=== PATIENT | male | born 1960 | race Caucasian/White ===

== ENCOUNTER 2016-09-19 07:30 | Inpatient (IN) ==
[~2016-09-19 07:30] MED LIST: *HR* FentaNYL (PF) 100 MCG/2 ML VIAL ONE; *HR* Midazolam HCl 2 MG/2 ML VIAL ONE; *HR* Phenylephrine 10 MG/ML VIAL ONE; *HR* Propofol 200 MG/20 ML VIAL IVP ONE; *HR* Remifentanil 1 MG VIAL IVP ONE; *HR* Succinylcholine 200 MG/10 ML VIAL IVP ONE; Dexamethasone 4 MG/ML VIAL ONE; Lidocaine -MPF 2% 2 ML VIAL ONE; Lidocaine -MPF 4% 5 ML AMPUL ONE; Ondansetron 4 MG/2 ML VIAL ONE
[2016-09-19] MEDS ORDERED: Gabapentin 300 MG CAPSULE PO STA (07:52)
--- NOTE | 2016-09-19 07:55 | Anesthesia Evaluation PreOp ---
Date of Encounter: 09/19/16 Time of Encounter: 07:53 - Past History Planned Operation: C5-6 ACDF Cardiac History: [place] (2005), Angina, HTN (maintained on lisinopril-Hctz, Metoprolol,), Hyperlipidemia, Cardiac Surgery (CABG x 3v 07/2006), Cardiac Stent (CABG), Other (ECHO 09/13/16 - LVEF = 68%. 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 Cervical RAdiculopathy. Anxiety/Depression w/ hospitalization for SI/OD 07/2015 - maintained on Cymbalta, TRazadone, Abilify. Memory loss/Mental Disorder) Other Medical History: GERD (Hiatal hernia, Crohns Dz, Gill's Esophagitis, Ulcerative Colitis) Anesthesia History: No Prior Anesthetic Complications, Past Anesthesia (Knee surgery, Cardiac Cath w/CABG x3v 06/2006, EGD, Colonoscopy/polypectomy) Alcohol Use: occasionally Drug use: none Medications and Allergies Albuterol Sulfate [Ventolin Hfa] 2 puff IH Q4H PRN 04/27/16 [History] Aripiprazole [Abilify] 10 mg PO DAILY 04/27/16 [History] Atorvastatin [Lipitor] 40 mg PO HS 04/27/16 [History] Duloxetine [Cymbalta] 90 mg PO DAILY 04/27/16 [History] Fluticasone Propionate Nasal [Flonase] 2 spr NS DAILY PRN 04/27/16 [History] Nitroglycerin [Nitrostat] 0.4 mg SL Q5M PRN 04/27/16 [History] OxyCODONE/APAP 10/325 [Percocet 10/325 MG] 1 each PO Q6HR PRN #14 tablet [Rx] Promethazine [Phenergan] 25 mg PO Q6HR PRN 04/27/16 [History] OxyCODONE/APAP 5/325 [Percocet 5/325 MG] 1 each PO Q6HR #10 tablet 08/24/16 [Rx] Allergies acetaminophen [From [place]] Adverse Reaction (Verified 08/24/16 13:03) Itching hydrocodone [From [place]] Adverse Reaction (Verified 08/24/16 13:03) Itching - Meds/Allergy Pre-op Review Medications Reviewed: Yes Allergies Reviewed: Yes Beta Blockers on Current Med List: Yes If Beta Blockers taken, Date/Time (Last Dose taken): Metoprolol "a few days ago " Anesthesia Results - Labs Laboratory Tests 08/13/15 09/07/16 09/07/16 06:01 14:40 14:40 WBC 12.4 H Hgb 16.3 Hct 48.2 Plt Count 298 PT 11.3 INR 1.0 APTT 32.1 Sodium Potassium Chloride Carbon Dioxide BUN Creatinine Est GFR (Non-Af Amer) Glucose 104 H 09/07/16 14:40 WBC Hgb Hct Plt Count PT INR APTT Sodium 140 Potassium 3.9 Chloride 112 H Carbon Dioxide 20 BUN 15 Creatinine 0.93 Est GFR (Non-Af Amer) > 60 Glucose - Imaging EKG: image reviewed (80bpm SR, ST deviation adn moderate Twave abnl, inferior ischemia considiered) Anesthesia Exam O2 Sat Height 1.78 m Weight 95.254 kg O2 Sat Height 1.78 m Height 1.78 m Weight 95.254 kg Weight 95.254 kg O2 Sat by Pulse Oximetry 95 Vital Signs Temp Pulse Resp BP Pulse Ox 98.0 F 65 18 150/93 95 09/19/16 08:24 09/19/16 08:24 09/19/16 08:24 09/19/16 08:24 09/19/16 08:24 Height: 5'10" Weight: 210# NPO (# of Hours): MNoc - HEENT Pupil (Motor): Pupils equal, EOMI Mallampati: III Teeth: Edentulous (upper) Oral Opening: Greater than 3 - EQUIPMENT HIRE MANAGER LOC: Oriented EQUIPMENT HIRE MANAGER Motor: Normal RUE, Normal RLE, Normal LLE, Normal Face, Deficit LUE ( Shoulder pain) EQUIPMENT HIRE MANAGER Sensory: Normal: RUE, LUE, RLE, LLE, Face - Cardiac Rhythm: Regular - Pulmonary Breath Sounds: bilateral Clear Respiratory Effort: Symmetrical Anesthesia Assess/Plan ASA Score: 3 (CAD, HTN, MEMO, Smoker, Mental Disability, COPD) Modified Burnside Scale for Level of Consciousness: Cooperative, oriented, and tranquil Anesthetic Plan: General Monitoring Plan: Standard Monitors Recovery Plan: PACU Anes Supervising Prov Stmt: Pt seen/evaluated, R&B discussed, questions answered and consent obtained. Sue Tamez MD
--- NOTE | 2016-09-19 07:58 | History & Physical Report ---
Date of Encounter: 09/19/16 Time of Encounter: 07:58 24 Hour HP Update - Instructions Instructions: If the History and Physical is less than 30 days old and was completed prior to A.M. admission and or procedure and has NOT been updated on calendar day of procedure please complete this update prior to performing procedure. - Update Patient reports changes in Medical Condition: No Changes in assessment/condition: No Changes in Medication: No Preop tests/diagnostics Reviewed: Yes Pre-Op MRSA Screen: Negative Surgery Remains Indicated: Yes Consent for Planned Operative Procedure(s) Verified: Yes - Pre-Operative Checklist Preoperative Checklist Indicated: No Prophylactic Antibiotic Ordered: Yes Home Medications Include Beta Kat: No Beta Kat Taken Today (Day of Surgery): No Beta Kat Taken Yesterday (Day Prior to Surgery): No Is VTE Prophylaxis Indicated?: Yes
[2016-09-19] MEDS ORDERED: Famotidine 20 MG/2 ML VIAL IVP ONE (08:08)
[2016-09-19] MEDS ORDERED: Acetaminophen IV 1,000 MG/100 ML INFUS..BTL IVPB ONE (08:10)
[2016-09-19] MEDS ORDERED: CeFAZolin Pre 2,000 MG/100 ML 2,000 MG/100 ML BAG IVPB ONE (08:10)
[2016-09-19] MEDS ORDERED: Albuterol 2.5 MG/3 ML NEBULIZER IH ONE (08:13)
[2016-09-19] MEDS ORDERED: Albuterol 2.5 MG/3 ML NEBULIZER ONE (08:16)
[2016-09-19] MEDS: Ringers Solution, Lactated 1,000 ML IVC SCH ×3 (08:29→11:02)
[2016-09-19] MEDS ORDERED: *HR* Metoprolol 5 MG/5 ML VIAL IVP ONE (08:41)
[2016-09-19] MEDS ORDERED: EPHEDrine 50 MG/ML VIAL ONE (09:15)
--- NOTE | 2016-09-19 10:53 | Orthopedic Operative Note ---
Date of procedure: 09/19/16 Pre-op diagnosis: cervical stenosis, cervical radiculopathy Post-op diagnosis: same Operation/Findings: Anterior cervical decompression and fusion C5-C6: The patient was brought to the operating room and placed supine on the operating room table. Successful general endotracheal anesthesia intubation was performed. Neurophysiologic monitoring personnel placed leads on the upper and lower extremities as well as the cranium for EMG monitoring purposes. Appropriate baseline potentials were noted by the neurophysiologic monitoring staff. Cohen catheter was placed prior to positioning. Compression boots and stockings were used for deep vein thrombosis prophylaxis. Padding was also placed all bony prominences including the ulnar nerve near the medial epicondyles of the elbows were appropriately padded. Mild traction was placed on the bilateral shoulders and taped into place. Preoperative antibiotics were administered. The area from the mandible bilaterally to the upper thoraces was prepped and draped in the usual sterile fashion. A transverse incision was made at the level of the cricoid cartilage which is approximately 3 cm in length and extended from the midline of the cervical spine laterally towards the sternocleidomastoid muscle on the left. We then performed standard medial approach to the carotid sheath. Sponges were used to tease the fascial medial to the sternocleidomastoid muscle while carefully controlling and palpating the carotid artery. Using careful dissection we were able to get to the level of the anterior vertebral bodies and longus coli muscles. The spinal needle was placed at the appropriate C5-6 level, and intraoperative radiograph was obtained which was a cervical spine lateral radiograph. The needle and radiograph confirmed we were at the correct C5-6 operative level. We further exposed this level by using Bovie cautery under the medial edge of the longus coli muscles to allow them to be retracted approximately 2 mm laterally on each side. An 11 blade was used to perform anterior discectomy at the appropriate C5-6 level after an initial annulotomy of the anterior longitudinal ligament and annulus was performed. Further disc material was removed with pituitary Rongeurs. Subsequently, Synthes pins were placed at the C5 and C6 vertebral bodies respectively to provide distraction. We then used a Trimline cervical retractor which was placed in both medial and lateral as well as inferior superior direction to allow full visualization of the appropriate disc and vertebral bodies. The Leica microscope was brought to the field and the remainder of the procedure was performed under the guidance of this microscope. Using pituitary rongeurs and small curettes, various micro-instruments, a full discectomy was performed at the appropriate C5-6 level. The posterior longitudinal ligament was encountered and appeared partially calcified. A portion of this ligament was removed. After complete and thorough discectomy and removal of spondylitic material was performed the endplates of the C5 and C6 vertebral bodies were prepared with a bur until allow bleeding of cancellous bone. A 7 mm trial graft was evaluated and appeared to fit quite well within the excised C5-6 disc space. A cortico-cancellus allograft of 7 mm was utilized, carefully tapped into place within the excised disc space with the aid of a bone tamp. It was seated approximately 2 mm from the anterior edge of the cortex of the adjacent vertebral bodies. A cervical plate was then placed on the anterior aspect of the C5 and C6 vertebral bodies. The plate was placed in the midline position after drilling four 13 mm self tapping screws and inserting them. They were locked in place using standard Venture plate maneuvers. At this point a lateral radiograph of the cervical spine was obtained and showed satisfactory position of the graft and plate. The wound was copiously irrigated and bleeders encountered were cauterized using Bovie cautery. Platysma was closed with interrupted 2-0 Vicryl sutures. Running 3-0 Monocryl suture was used for skin closure. Sterile dressing was placed over the neck wound. The patient was transferred to a hospital bed and extubated. The patient was noted to be fully motor and sensory intact in the recovery room at the end of the procedure. The medications. All sponge instrument and needle counts were correct at the end of the procedur Anesthesia: GETA Surgeon: Timoteo Zamora Jr Estimated blood loss (cc): 11 Condition: stable Disposition: PACU
[2016-09-19] MEDS: *HR* HYDROmorphone (PF) 1 MG/ML SYRINGE IVP PRN ×3 (11:10→11:30)
[2016-09-19] MEDS: *HR* Promethazine 25 MG/ML VIAL IVP PRN ×2 (11:15→11:22)
[2016-09-19] MEDS: *HR* Labetalol 100 MG/20 ML MDV IVP PRN ×2 (11:29→11:34)
[2016-09-19] MEDS ORDERED: CloNIDine Patch 0.1 MG PATCH (WEEKLY) TD SCH (11:48)
--- NOTE | 2016-09-19 12:09 | Anesthesia Evaluation Post Op ---
Date of Encounter: 09/19/16 Time of Encounter: 12:07 - Vital Signs Vital Signs: Vital Signs/O2 Sat/Glucose, Most Current Temp Pulse Resp BP Pulse Ox 09/19/16 11:52 79 16 163/106 92 L 09/19/16 11:42 77 16 164/108 92 L 09/19/16 11:32 97.8 F 77 16 167/106 92 L 09/19/16 11:22 78 16 178/113 93 L 09/19/16 11:12 81 16 173/114 95 09/19/16 11:02 97.6 F 81 16 176/109 99 09/19/16 08:30 98.0 F 65 18 150/93 95 09/19/16 08:24 98.0 F 65 18 150/93 95 - Lungs Lungs: Clear Ascult./Percussion - Airway Airway: Non-obstructed - Cardiovascular Regular Rate - Mental Status Mental Status: Asleep with brisk response to light stimulation - Pain Pain Scale: 1 Pain Scale used: [place] (Faces) - Nausea Vomiting Nausea Vomiting: Not Present - Hydration Hydration: Ice chips, Cohen catheter - Discharge PostOp Status: Transfer Patient to floor Anes Supervising Prov Stmt: Pt seen/evaluated, VSS and pt has met criteria for discharge to floor. - MD Joi
[2016-09-19] MEDS ORDERED: *HR* Morphine 2 MG/ML SYRINGE IVP PRN (12:18)
[2016-09-19] MEDS ORDERED: Naloxone 0.4 MG/ML INJ IVP PRN (12:18)
[2016-09-19] MEDS ORDERED: Sennosides 8.6 MG TABLET PO PRN (12:18)
[2016-09-19] MEDS ORDERED: Ringers Solution, Lactated 1,000 ML IVC SCH (12:18)
[2016-09-19] MEDS ORDERED: Nitroglycerin 0.4 MG TAB.SUBL SL PRN (12:18)
[2016-09-19] MEDS ORDERED: Fluticasone Propionate Nasal 50 MCG/SPRAY BOTTLE NS PRN (12:18)
[2016-09-19] MEDS: *HR* OxyCODONE Immed Rel 5 MG TABLET PO PRN ×2 (13:11→19:48)
[2016-09-19] MEDS: ceFAZolin 2,000 MG in D5% in Water 100 ML IVPB SCH (15:13)
[2016-09-19] MEDS: *HR* Morphine 2 MG/ML SYRINGE IVP PRN ×2 (17:44→22:11)
[2016-09-19] MEDS ORDERED: Ondansetron 4 MG/2 ML VIAL IVP PRN (18:08)
[2016-09-19] MEDS ORDERED: traZODone 50 MG TABLET PO SCH (21:00)
[2016-09-20] MEDS: ceFAZolin 2,000 MG in D5% in Water 100 ML IVPB SCH (01:17)
[2016-09-20] MEDS: *HR* OxyCODONE Immed Rel 5 MG TABLET PO PRN (04:39)
[2016-09-20] MEDS: *HR* Morphine 2 MG/ML SYRINGE IVP PRN (05:55)
[2016-09-20] MEDS ORDERED: *HR* OxyCODONE Immed Rel 5 MG TABLET PO PRN (08:47)
[2016-09-20] MEDS ORDERED: Metoprolol XL (24 HR) Succ 50 MG TAB.ER.24H PO SCH (09:00)
[2016-09-20] MEDS ORDERED: (Budesonide [Entocort Ec] 9 MG) PO SCH (09:00)
[2016-09-20] MEDS ORDERED: ARIPiprazole 10 MG TABLET PO SCH (09:00)
[2016-09-20] MEDS ORDERED: Lisinopril 20 MG TABLET PO SCH (09:00)
[2016-09-20] MEDS ORDERED: *HR* OxyCODONE Immed Rel 5 MG TABLET PO SCH (12:00)
[2016-09-20 12:28] VITALS: BP 154/80
--- NOTE | 2016-09-20 13:27 | Discharge Summary ---
Date of Encounter: 09/20/16 Time of Encounter: 13:25 - Discharge Diagnosis (1) Cervical spinal stenosis Priority: Primary Status: Chronic (2) Cervical radiculopathy Priority: Secondary Status: Chronic - Discharge Medications Prescriptions: OxyCODONE Immed Rel [Roxicodone 5 MG] 5 mg PO Q4HR PRN #60 tablet PRN Reason: Pain Home Medications: Albuterol Sulfate [Ventolin Hfa] 2 puff IH Q4H PRN 04/27/16 [History] Aripiprazole [Abilify] 10 mg PO DAILY 04/27/16 [History] Atorvastatin [Lipitor] 40 mg PO HS 04/27/16 [History] Duloxetine [Cymbalta] 90 mg PO DAILY 04/27/16 [History] Fluticasone Propionate Nasal [Flonase] 2 spr NS DAILY PRN 04/27/16 [History] Nitroglycerin [Nitrostat] 0.4 mg SL Q5M PRN 04/27/16 [History] OxyCODONE/APAP 10/325 [Percocet 10/325 MG] 1 each PO Q6HR PRN #14 tablet [Rx] Budesonide [Entocort EC] 9 mg PO DAILY 09/19/16 [History] Lisinopril [Zestril] 20 mg PO DAILY 09/19/16 [History] Metoprolol XL (24 HR) Succ [Toprol Xl] 50 mg PO DAILY 09/19/16 [History] Terazosin [Hytrin] 5 mg PO HS 09/19/16 [History] Trazodone HCl 100 mg PO HS 09/19/16 [History] OxyCODONE Immed Rel [Roxicodone 5 MG] 5 mg PO Q4HR PRN #60 tablet 09/20/16 [Rx] Allergies/Adverse Reactions: Allergies acetaminophen [From [place]] Adverse Reaction (Verified 09/19/16 08:39) Itching hydrocodone [From [place]] Adverse Reaction (Verified 09/19/16 08:39) Itching - Impressions ITS Impressions Cervical Spine X-Ray 09/19/16 09:35 IMPRESSION: Intraoperative sagittal image of the cervical spine demonstrates a surgical probe at the anterior aspect of C5-6 disc space. The findings were reported to Dr. Zamora at 9:46 a.m. on September 19, 2016. D/ / Sami Orona MD / Sami Orona MD Interpreting Provider: Sami Orona MD Cervical Spine X-Ray 09/19/16 09:48 IMPRESSION: Status post C5-C6 ACDF D/ / Toi Dhillon MD / Toi Dhillon MD Interpreting Provider: Toi Dhillon MD Cervical Spine X-Ray 09/20/16 08:15 IMPRESSION: Anterior cervical spinal fusion and discectomy of C5-C6 without acute complication. D/ / Ramon Betancourt MD / Ramon Betancourt MD Interpreting Provider: Ramon Betancourt MD Date of admission: 09/19/16 12:22 Primary care physician: Ketty Rojas, Consults: 09/19/16 12:18 Consult to Occupational Therapy [CONS] Routine Comment: Evaluate, develop and implement POC Consult to Physical Therapy [CONS] Routine Comment: Evaluate, develop and implement POC Consult to Spine Navigator [CONS] [CONS] Routine - Patient Status Disposition: Home, Self-Care Condition: Good Functional capacity at discharge: independent ambulation Overall status at discharge: patient is back to baseline - Discharge Instructions Follow Up With: Andra Chaney PAC [Physician Final Inspector [employer]cyles] - 10/02/16 10:00 am Jamar Estrada MD [Partnered Physician] - 11/26/16 11:00 am Ketty Rojas MD [Primary Care Provider] - Additional Instructions: Discharge Instructions: Cervical Please call [facility] ([phone]), your Primary Care Physician, or report to the ER if you have any of the following symptoms: Fever greater that 101.5, increased pain/redness/drainage/odor for your incision site or any other concerning symptoms. ACTIVITY * May Shower * No Tub Baths * No Smoking * No Swimming * No Driving * Wear Collar when up walking MEDICATIONS: Upon discharge resume your home medications. Take all the medications as prescribed. Take a stool softener if taking narcotic pain medications. Stool softeners are only effective if you drink enough fluids. Drink 6-8 glass of water or fluids a day, unless this is not allowed for another health problem. Despite using stool softeners, if you haven't had a bowel movement in 3 days, please switch to a gentle laxative. Gentle laxatives are sold over the counter. You should have a bowel movement within 24 hours, if not call the office. You will be discharged from the hospital with a prescription for pain medication. You are encouraged to decrease the use of narcotic pain medication as tolerated. Should you require a refill, please call the office. It is best to call 48-72 hours in advance of needing a prescription refill so you don't run out of medication. WOUND CARE: Leave steri-strips in place until they fall off on their own. Pat dry when you get out of the shower. FOLLOW-UP: Please follow up with your surgeon in the orthopedic clinic in 2 weeks from the day of surgery. References: [employer] (www.apta.org) - Diet and Activity Activity: ambulate only with your walker, as per physical therapy Diet: advance to your usual diet - Hospital Course Hospital course: Mr. Kowalski is a 56 year old male The patient had an uneventful postoperative course. Progressed from intravenous analgesic needs to oral analgesic needs only. Remained neurovascularly intact and mobilized satisfactorily. All intraoperative and/or postoperative radiographic studies were satisfactory. Patient is discharged with plan for rehabilitation and follow-up in 2 weeks post discharge on analgesic medication and patient's home medications. - Time Spent with Patient Total time spent providing and/or coordinating discharge services: - VTE Documentation of Mechanical Device: Intermittent pneumatic compression device
== END 2016-09-20 13:52 | disposition home or self-care (01) | DRG 472 ==
LOC: SAMDAY 07:30 → 3NENU 12:22
PROVIDERS: ADMIT Orthopaedic Surgery Orthopaedic Surgery of the Spine; ATTEND Orthopaedic Surgery Orthopaedic Surgery of the Spine

== ENCOUNTER 2018-09-03 20:09 | Inpatient (IN) ==
[2018-09-03] MEDS ORDERED: Nitroglycerin 0.4 MG TAB.SUBL SL PRN (20:27)
[2018-09-03] MEDS ORDERED: *HR* Ticagrelor 90 MG TABLET PO ONE (20:27)
[2018-09-03] MEDS ORDERED: Aspirin 81 MG TAB.CHEW PO ONE (20:27)
[2018-09-03] MEDS ORDERED: *HR* Heparin 5,000 UNIT/ML VIAL IVP PRN ×2 (20:27)
[2018-09-03] MEDS ORDERED: *HR* Heparin 5,000 UNIT/ML VIAL IVP ONE (20:27)
[2018-09-03] MEDS ORDERED: Heparin 25,000 UNIT/500 ML D5W 25,000 UNIT/500 ML BAG IVC SCH (20:30)
[2018-09-03] MEDS ORDERED: *HR* Heparin 5,000 UNIT/ML VIAL ONE (20:31)
[2018-09-03] MEDS ORDERED: *HR* Ticagrelor 90 MG TABLET ONE (20:31)
[2018-09-03] MEDS ORDERED: Aspirin 81 MG TAB.CHEW ONE (20:31)
[2018-09-03 20:44] LABS: Basophils # 0.1 K/mcL (0.0-0.2); Basophils % 1.2 %; Eosinophils # 0.6 K/mcL (0.0-0.6); Eosinophils % 5.3 %; Hemoglobin 14.9 g/dL (12.9-16.9); Immature Granulocytes % 0.7 % (0-4); Lymphocytes # 3.5 K/mcL (0.6-4.6); Lymphocytes % 28.7 %; Mean Corpuscular HGB Conc 32.4 g/dL (31.6-35.5); Mean Corpuscular Hemoglobin 28.6 pg (28.0-33.3); Mean Corpuscular Volume 88.3 fL (83.0-100.0); Mean Platelet Volume 8.5 fL (9.4-12.4); Monocytes # 1.7 K/mcL (0.0-1.3); Monocytes % 14.5 %; Platelet Count 414 K/mcL (140-400); Red Blood Count 5.21 M/mcL (4.19-5.50); Segmented Neutrophils % 49.6 %
[2018-09-03] MEDS ORDERED: Verapamil 5 MG/2 ML VIAL ONE (20:51)
[2018-09-03] MEDS ORDERED: 0.9 % Sodium Chloride 1,000 ML ONE ×2 (20:52→21:17)
[2018-09-03] MEDS ORDERED: *HR* FentaNYL (PF) 100 MCG/2 ML VIAL ONE (20:52)
[2018-09-03] MEDS ORDERED: *HR* Heparin 10,000 UNIT/10 ML VIAL ONE (20:52)
[2018-09-03] MEDS ORDERED: ISOVUE-370 200 ML INFUS..BTL ONE ×2 (20:52→21:36)
[2018-09-03] MEDS ORDERED: *HR* Midazolam HCl 5 MG/5 ML VIAL IVP ONE (20:52)
[2018-09-03] MEDS ORDERED: Heparin 1,000 UNITS/500 mL 500 ML ONE (20:52)
[2018-09-03] MEDS ORDERED: Nitroglycerin 1,000 MCG/10 ML VIAL IV ONE (20:53)
--- NOTE | 2018-09-03 20:53 | Emergency Department Note ---
Disposition Clinical Impression: STEMI (ST elevation myocardial infarction) Qualifiers: Involved coronary artery: unspecified coronary artery Qualified Code(s): I21.3 - ST elevation (STEMI) myocardial infarction of unspecified site Chest pain Qualifiers: Chest pain type: unspecified Qualified Code(s): R07.9 - Chest pain, unspecified Disposition: Admitted As Inpatient Condition: Fair Referrals: Ketty Rojas MD [Primary Care Provider] - Forms: ED Satisfaction Letter Time of Disposition: 20:56 General Adult HPI - General Chief complaint: ED Chest Pain Stated complaint: chest pain had stints placed last week Time Seen by Provider: 09/03/18 20:20 Source: patient Mode of arrival: ambulatory Limitations: no limitations Nursing Notes Reviewed: Yes Vital Signs Reviewed: Yes - History of Present Illness HPI Narrative: Patient is a 58-year-old male with a past medical history of CABG in 2005, 2 stents placed in the RCA approximately one week ago presents to the emergency department for evaluation of chest pain that occurred one hour prior to arrival. Patient states he is resting on his couch at home when he had sudden onset of a pressure-like chest pain in the left chest. He described the pain initially as a 7/10. He states he also has felt generally weak at that time. States he took 2 nitroglycerin at home and his pain resolved. Patient is present with his daughter. Daughter states that one week ago he was seen at [place] and he was life flighted to their hospital because he was being coded. The patient was found to have blockage in his RCA in 2 stents were placed at that time. Daughter states that the patient has been noncompliant with his Plavix and other meds. Pain Scale: 0 - Related Data Home Medications Medication Instructions Recorded Confirmed Albuterol Sulfate [Ventolin Hfa] 2 puff IH Q4H PRN 04/27/16 01/22/18 Aripiprazole [Abilify] 10 mg PO DAILY 04/27/16 01/22/18 DULoxetine [Cymbalta] 90 mg PO DAILY 04/27/16 01/22/18 Lisinopril [Zestril] 20 mg PO DAILY 09/19/16 01/22/18 Terazosin [Hytrin] 5 mg PO HS 09/19/16 01/22/18 Dextroamphetamine/Amphetamine 15 mg PO BID 01/22/18 01/22/18 [Adderall 15 mg Tablet] Dicyclomine [Bentyl] 10 mg PO TID 01/22/18 01/22/18 Omeprazole [PriLOSEC] 40 mg PO DAILY 01/22/18 01/22/18 Zolpidem Tartrate 5 mg PO HS 01/22/18 01/22/18 Previous Rx's Medication Instructions Recorded Clindamycin [Cleocin] 150 mg PO Q6HR #7 capsule 01/22/18 Ibuprofen [Motrin] 600 mg PO Q8HR PRN #21 tab 01/22/18 OxyCODONE Immed Rel [Roxicodone 5 1 - 2 mg PO Q6HR PRN 5 Days #20 01/22/18 MG] tablet Allergies Allergy/AdvReac Type Severity Reaction Status Date / Time hydrocodone [From [place]] AdvReac Itching Verified 01/22/18 08:36 All systems ED: reviewed and negative except as stated. Review of Systems: As Per HPI Constitutional: Denies: fever, chills Cardiovascular: Reports: chest pain, other (Diaphoresis). Denies: palpitations, dyspnea on exertion, edema Respiratory: Denies: cough, dyspnea, wheezes Gastrointestinal: Denies: nausea, vomiting Integumentary: Denies: rash Past Medical History - Past Medical History Attestation: Yes The following information was validated with the patient. Medical history: Reports: COPD, coronary artery disease, GERD, hypertension, myocardial infarction, thyroid disease, other Surgical history: Reports: coronary bypass (CABG), other Psychiatric history: Reports: depression - Social History Smoking Status: Current every day smoker Smokeless Tobacco Status: No Alcohol use: Reports: none Drug use: Reports: none Physical Exam CONSTITUTIONAL: A&O X 3, diaphoretic, and speaking in full sentences. HEAD: Normocephalic; atraumatic EYES: PERRL, no scleral icterus NOSE: The nose is normal in appearance without rhinorrhea NECK: No JVD or distended neck veins RESP: Normal chest excursion with respiration; breath sounds clear and equal bilaterally; no wheezes, rhonchi, or rales CARD: Regular rhythm, without murmurs, rub or gallop ABD: Non-distended; non-tender, soft, without rigidity, rebound or guarding,no pulsatile mass CHEST: No pain with palpation SKIN: Normal for age and race; warm and dry without diaphoresis ; no apparent lesions EXTREMITIES: Pulses are 2 plus and equal times 4 extremities, no peripheral edema or calf muscle pain - General Limitations: no limitations General appearance: alert, in no apparent distress Course Course Narrative: EKG was handed to me at 20:18. EKG was concerning for ST elevation in II, III and aVF. Patient also has ST depressions in room 1 and aVL with mild ST elevations in leads V4 through V6. STEMI was called at that time. I discussed the patient's case with the cardiac interventional is Dr. Ferguson on the phone and sent him a picture of the EKG. He agreed to take the patient to the Boxing Instructor at that time. Aspirin, brill into and low-dose heparin was ordered and patient is currently stable at this time and chest pain-free. Vital Signs Temperature 97.8 F 09/03/18 20:22 Pulse Rate 78 09/03/18 20:22 Respiratory Rate 18 09/03/18 20:22 Blood Pressure 170/107 09/03/18 20:22 O2 Sat by Pulse Oximetry 94 09/03/18 20:22 Temperature 97.8 F 09/03/18 20:22 Pulse Rate 73 09/03/18 20:45 Respiratory Rate 20 09/03/18 20:45 Blood Pressure 154/98 09/03/18 20:45 O2 Sat by Pulse Oximetry 95 09/03/18 20:45 Oxygen Delivery Oxygen Delivery Room Air Medical Decision Making - Medical Records Medical records reviewed: Yes I reviewed the patient's medical records. - Lab Data Lab results reviewed: Yes I reviewed the patient's lab results. Result diagrams: 09/03/18 20:32 Lab Results 09/03/18 Range/Units 20:32 WBC 12.0 H (4.3-11.1) K/mcL RBC 5.21 (4.19-5.50) M/mcL Hgb 14.9 (12.9-16.9) g/dL Hct 46.0 (37.5-50.1) % MCV 88.3 (83.0-100.0) fL MCH 28.6 (28.0-33.3) pg MCHC 32.4 (31.6-35.5) g/dL RDW 13.0 (11.5-14.5) % Plt Count 414 H (140-400) K/mcL MPV 8.5 L (9.4-12.4) fL Immature Gran % 0.7 (0-4) % Seg Neutrophils % 49.6 % Lymphocytes % 28.7 % Monocytes % 14.5 % Eosinophils % 5.3 % Basophils % 1.2 % Neutrophils # 6.0 (1.6-8.9) K/mcL Lymphocytes # 3.5 (0.6-4.6) K/mcL Monocytes # 1.7 H (0.0-1.3) K/mcL Eosinophils # 0.6 (0.0-0.6) K/mcL Basophils # 0.1 (0.0-0.2) K/mcL - Radiology Data Radiology results reviewed: Yes I reviewed the patient's radiology results. - EKG Data EKG #1 EKG attestation: Yes I reviewed and interpreted this EKG. EKG results narrative: EKG performed at 20:16 shows sinus rhythm at a rate of 74 bpm. Normal axis. Intervals within normal limits. ST elevations in II, III, and aVF with ST depressions in I, aVL, and V4 through V6. These are all new changes when compared to the EKG done on 03/29/2018.
[2018-09-03 20:56] LABS: INR 1.1; Prothrombin Time 12.6 Seconds (9.4-12.1)
[2018-09-03 20:59] LABS: Activated Partial Thrombo Time 37.1 Seconds (26.0-36.0)
--- NOTE | 2018-09-03 21:01 | Emergency Department Note ---
Disposition Clinical Impression: STEMI (ST elevation myocardial infarction) Qualifiers: Involved coronary artery: unspecified coronary artery Qualified Code(s): I21.3 - ST elevation (STEMI) myocardial infarction of unspecified site Chest pain Qualifiers: Chest pain type: unspecified Qualified Code(s): R07.9 - Chest pain, unspecified Disposition: Admitted As Inpatient Condition: Fair Referrals: Ketty Rojas MD [Primary Care Provider] - Forms: ED Satisfaction Letter General Adult HPI - General Chief complaint: ED Chest Pain Stated complaint: chest pain had stints placed last week Time Seen by Provider: 09/03/18 20:22 Source: patient Mode of arrival: ambulatory Limitations: no limitations Nursing Notes Reviewed: Yes Vital Signs Reviewed: Yes - History of Present Illness Pain Scale: 0 - Related Data Home Medications Medication Instructions Recorded Confirmed Albuterol Sulfate [Ventolin Hfa] 2 puff IH Q4H PRN 04/27/16 01/22/18 Aripiprazole [Abilify] 10 mg PO DAILY 04/27/16 01/22/18 DULoxetine [Cymbalta] 90 mg PO DAILY 04/27/16 01/22/18 Lisinopril [Zestril] 20 mg PO DAILY 09/19/16 01/22/18 Terazosin [Hytrin] 5 mg PO HS 09/19/16 01/22/18 Dextroamphetamine/Amphetamine 15 mg PO BID 01/22/18 01/22/18 [Adderall 15 mg Tablet] Dicyclomine [Bentyl] 10 mg PO TID 01/22/18 01/22/18 Omeprazole [PriLOSEC] 40 mg PO DAILY 01/22/18 01/22/18 Zolpidem Tartrate 5 mg PO HS 01/22/18 01/22/18 Previous Rx's Medication Instructions Recorded Clindamycin [Cleocin] 150 mg PO Q6HR #7 capsule 01/22/18 Ibuprofen [Motrin] 600 mg PO Q8HR PRN #21 tab 01/22/18 OxyCODONE Immed Rel [Roxicodone 5 1 - 2 mg PO Q6HR PRN 5 Days #20 01/22/18 MG] tablet Allergies Allergy/AdvReac Type Severity Reaction Status Date / Time hydrocodone [From [place]] AdvReac Itching Verified 01/22/18 08:36 Constitutional: Denies: fever, chills Cardiovascular: Reports: chest pain, other (Diaphoresis). Denies: palpitations, dyspnea on exertion, edema Respiratory: Denies: cough, dyspnea, wheezes Gastrointestinal: Denies: nausea, vomiting Integumentary: Denies: rash Past Medical History - Past Medical History Medical history: Reports: COPD, coronary artery disease, GERD, hypertension, myocardial infarction, thyroid disease, other Surgical history: Reports: coronary bypass (CABG), other Psychiatric history: Reports: depression - Social History Smoking Status: Current every day smoker Smokeless Tobacco Status: No Alcohol use: Reports: none Drug use: Reports: none Physical Exam - General Limitations: no limitations General appearance: alert, in no apparent distress Course Vital Signs Temperature 97.8 F 09/03/18 20:22 Pulse Rate 78 09/03/18 20:22 Respiratory Rate 18 09/03/18 20:22 Blood Pressure 170/107 09/03/18 20:22 O2 Sat by Pulse Oximetry 94 09/03/18 20:22 Temperature 97.8 F 09/03/18 20:22 Pulse Rate 69 09/03/18 21:00 Respiratory Rate 20 09/03/18 21:00 Blood Pressure 158/102 09/03/18 21:00 O2 Sat by Pulse Oximetry 94 09/03/18 21:00 Oxygen Delivery Oxygen Delivery Room Air Medical Decision Making - Lab Data Lab results reviewed: Yes I reviewed the patient's lab results. Result diagrams: 09/03/18 20:32 09/03/18 20:32 Lab Results 09/03/18 09/03/18 09/03/18 Range/Units 20:32 20:32 20:32 WBC 12.0 H (4.3-11.1) K/mcL RBC 5.21 (4.19-5.50) M/mcL Hgb 14.9 (12.9-16.9) g/dL Hct 46.0 (37.5-50.1) % MCV 88.3 (83.0-100.0) fL MCH 28.6 (28.0-33.3) pg MCHC 32.4 (31.6-35.5) g/dL RDW 13.0 (11.5-14.5) % Plt Count 414 H (140-400) K/mcL MPV 8.5 L (9.4-12.4) fL Immature Gran % 0.7 (0-4) % Seg Neutrophils % 49.6 % Lymphocytes % 28.7 % Monocytes % 14.5 % Eosinophils % 5.3 % Basophils % 1.2 % Neutrophils # 6.0 (1.6-8.9) K/mcL Lymphocytes # 3.5 (0.6-4.6) K/mcL Monocytes # 1.7 H (0.0-1.3) K/mcL Eosinophils # 0.6 (0.0-0.6) K/mcL Basophils # 0.1 (0.0-0.2) K/mcL PT 12.6 H (9.4-12.1) Seconds INR 1.1 APTT 37.1 H (26.0-36.0) Seconds Sodium 141 (136-145) mEq/L Potassium 3.8 (3.5-5.1) mEq/L Chloride 111 H (98-107) mEq/L Carbon Dioxide 24 (23-29) mEq/L BUN 13 (6-20) mg/dL Creatinine 0.89 (0.70-1.30) mg/dL Est GFR ( Amer) > 60 (> 60) Est GFR (Non-Af Amer) > 60 (> 60) BUN/Creatinine Ratio 15 (6-26) Glucose 99 (70-105) mg/dL Calculated Osmolality 292 (280-300) Calcium 11.1 H (8.6-10.3) mg/dL Magnesium 2.2 (1.6-2.6) mg/dL Troponin I 0.28 H* (< 0.04) ng/mL - Radiology Data Radiology results reviewed: Yes I reviewed the patient's radiology results. Chest X-Ray 09/03/18 20:27 IMPRESSION: Stable chest x-ray. No definite acute disease. D/ / Timoteo Delgado MD / Timoteo Delgado MD Interpreting Provider: Timoteo Delgado MD - EKG Data EKG #1 EKG attestation: Yes I reviewed and interpreted this EKG. EKG results narrative: EKG shows normal sinus rhythm with ventricular rate of 74. ST segment elevation in leads II, III, and aVF consistent with acute inferior STEMI. Critical Care Time Critical Care Time: Yes Total Critical Care Time: 35 Attestation: Critical care performed: Time is exclusive of separately billable procedures. Time includes: direct patient care, patient reassessment, coordination of patient care, interpretation of data (laboratory data, radiology data, and respiratory data), review of patient's medical records, medical consultation and documentation of patient care. Procedures included in critical care time: Procedures excluded from critical care time: Attestation Statement - Attestation Attestation: I, Star Rivers MD, personally evaluated this patient and discussed their management with the resident physician. I reviewed the resident's note and agree with the documented findings, medical decision making, and plan of care. 58-year-old male presents to the emergency department with a complaint of left- sided and substernal chest pain which started approximately 1 hour prior to arrival. Patient was lying in bed with the pain started. The pain radiated to the left shoulder and left arm. Some mild diaphoresis. He did notshortness of breath. Patient states he just did not feel well. He has a history of a STEMI 9 days ago with 2 stents placed at [facility] in [place]. He also has a history of CABG 12 years ago. Daughter reports he is noncompliant with his medications. He is supposed to be taking aspirin and Plavix and metoprolol. His last dose of any of these medications was 2 days ago. Patient did take nitroglycerin at home 2. He states the first dose did not really help but the second dose significantly improved the pain. At present he states the pain has mostly resolved. On examination patient is a well-developed well-nourished male in no acute distress. He is alert and oriented 3. There is no cyanosis. Patient is mildly diaphoretic. Breath sounds are clear and equal bilaterally. Heart regular rate and rhythm. Abdomen soft and nontender with normal bowel sounds. No pedal edema noted. EKG shows a STEMI with acute inferior ST segment elevations. A STEMI alert was called. The interventional list, Dr. Ferguson, who reviewed the EKG and is taking patient to the [facility]. Patient was given aspirin, Brilinta, and heparin. He has remained stable here in the emergency department.
[2018-09-03 21:05] LABS: BUN/Creatinine Ratio 15 (6-26); Blood Urea Nitrogen 13 mg/dL (6-20); Calcium 11.1 mg/dL (8.6-10.3); Carbon Dioxide 24 mEq/L (23-29); Chloride 111 mEq/L (98-107); Glucose 99 mg/dL (70-105); Magnesium 2.2 mg/dL (1.6-2.6); Osmolality,Calculated 292 (280-300); Potassium 3.8 mEq/L (3.5-5.1); Sodium 141 mEq/L (136-145); eGFR For Non-African Americans > 60 (> 60)
[2018-09-03 21:09] LABS: Troponin I 0.28 ng/mL (< 0.04)
[2018-09-03] MEDS ORDERED: *HR* Morphine 2 MG/ML SYRINGE IVP PRN (21:16)
--- NOTE | 2018-09-03 21:16 | Pre-Sedation Evaluation ---
Pre-sedation evaluation - Pre-sedation checklist Date of procedure: 09/03/18 Procedure: [facility] Recent Vitals: Last Vital Signs Temp 97.8 F 09/03/18 20:22 Pulse 69 09/03/18 21:00 Resp 20 09/03/18 21:00 BP 158/102 09/03/18 21:00 Pulse Ox 94 09/03/18 21:00 H&P (including ROS) documented in medical record: No Previous reaction to sedatives/anesthetics: No Dietary Status: unknown Airway Assessment: Patient can open mouth completely, TMJ function normal Dentition: No loose teeth or bridges ASA Classification *see protocol: CLASS III-Severe systemic disease, [id number] to any of the above to indicate emergent Plan of Care: Pt appropriate candidate for procedure/moderate/conscious sedation, Risks/benefits of procedure/sedation discussed w/ patient/family, If not NPO; Risk of intake outweiged by necessity to perform procedure Cardiac Registry (Cardio Only) - Functional Capacity Functional Capacity: Unknown - Clincal Frailty Scale Clinical Frailty Scale: Managing Well
[2018-09-03] MEDS ORDERED: Tirofiban 12.5 MG/250ML 12.5 MG/250 ML BAG IVC SCH (21:30)
--- NOTE | 2018-09-03 22:12 | Cardiology History & Physical ---
Date of Encounter: 09/03/18 History of Present Illness HPI: Mr. Kowalski is a 58 year old male Past Med Surg Social Fam HX - Past Medical History Medical history: COPD, coronary artery disease, GERD, hypertension, myocardial infarction, thyroid disease, other Additional medical history: sleep apnea, DLD, ulcertive colitis, hiatal hernia, taylor's esophagus, crohns disease, dyslipemia, Psychiatric history: depression - Past Surgical History Surgical History: coronary bypass (CABG), other Additional surgical history: colonoscopy, egd, cardiac cath, cabg - Social History Smoking Status: Current every day smoker Smokeless Tobacco Status: No Alcohol use: none Drug use: none Medications and Allergies Albuterol Sulfate [Ventolin Hfa] 2 puff IH Q4H PRN 04/27/16 [History] Aripiprazole [Abilify] 10 mg PO DAILY 04/27/16 [History] DULoxetine [Cymbalta] 90 mg PO DAILY 04/27/16 [History] Lisinopril [Zestril] 20 mg PO DAILY 09/19/16 [History] Terazosin [Hytrin] 5 mg PO HS 09/19/16 [History] Clindamycin [Cleocin] 150 mg PO Q6HR #7 capsule 01/22/18 [Rx] Dextroamphetamine/Amphetamine [Adderall 15 mg Tablet] 15 mg PO BID 01/22/18 [History] Dicyclomine [Bentyl] 10 mg PO TID 01/22/18 [History] Ibuprofen [Motrin] 600 mg PO Q8HR PRN #21 tab 01/22/18 [Rx] Omeprazole [PriLOSEC] 40 mg PO DAILY 01/22/18 [History] OxyCODONE Immed Rel [Roxicodone 5 MG] 1 - 2 mg PO Q6HR PRN 5 Days #20 tablet 0 01/22/18 [Rx] Zolpidem Tartrate 5 mg PO HS 01/22/18 [History] Allergy/AdvReac Type Severity Reaction Status Date / Time hydrocodone [From [place]] AdvReac Itching Verified 01/22/18 08:36 All Systems Review: The remainder of the systems were reviewed and are negative Physical Examination Vital Signs, Last 4 Hours Temp Pulse Resp BP Pulse Ox 09/03/18 21:00 69 20 158/102 94 09/03/18 20:55 72 16 160/102 94 09/03/18 20:50 71 22 158/102 94 09/03/18 20:45 73 20 154/98 95 09/03/18 20:42 76 26 159/102 94 09/03/18 20:37 75 20 157/101 96 09/03/18 20:33 77 17 166/100 94 09/03/18 20:30 76 20 173/103 97 09/03/18 20:27 94 09/03/18 20:22 97.8 F 78 18 170/107 94 Results 09/03/18 20:32 09/03/18 20:32 Lab Results 09/03/18 09/03/18 09/03/18 20:32 20:32 20:32 WBC 12.0 H Hgb 14.9 Hct 46.0 Plt Count 414 H INR 1.1 APTT 37.1 H Sodium 141 Potassium 3.8 Chloride 111 H Carbon Dioxide 24 BUN 13 Creatinine 0.89 Glucose 99 Calcium 11.1 H Magnesium 2.2 Troponin I 0.28 H*
[2018-09-03] MEDS ORDERED: Ondansetron 4 MG/2 ML VIAL IVP PRN (22:13)
[2018-09-03] MEDS ORDERED: *HR* HYDROcodone/Acet 5/325 mg TABLET PO PRN (22:13)
--- NOTE | 2018-09-03 22:13 | Event Note ---
Date of Encounter: 09/03/18 Time of Encounter: 21:00 - Cardiology Event Note Recent cardiac arrest/ acute [place] sp PCI RCA BMS. Not taking his DAPT. His stents were patent with AMRIT 3 flow. Loaded with brilinta and aggrastat. No PCI indicated
[2018-09-03] MEDS ORDERED: Perflutren Lipid Microsphere 1.3 ML in 0.9 % Sodium Chloride 8.7 ML IVP ONE (22:34)
--- NOTE | 2018-09-03 22:34 | Invasive Diagnostic Lab Proc ---
Name: Jamar Kowalski Date of Study: 09/03/2018 Date: 1960 Ht: 68.1in Medical Record#: [id number] Age: 58 Wt: 205.03lb Gender: Male BSA: 2.07 Order #: [id number] BMI: 31.07 Physicians Procedure Physician: Tony Ferguson MD, [facility] Referring MD: Referring MD: Staff Name Position Time In AnaShannan RN Monitor 09:10 PM Abi Harper RN Border Measurer 09:10 PM Yasmin Hdez RT (R) Scrub 09:10 PM Indications Indication STEMI Procedures Performed Procedure L HRT ART/GRFT ANGIO Pre-Procedure Checklist Informed consent is complete signed and on chart. ID band is on and ID verified with patient. Pt not NPO for procedure and MD aware. The procedure was described for the patient and questions were answered. Plan of Care Patient will tolerate the procedure without complications. Adequate level of comfort will be maintained. Hemodynamics will remain stable Patient will recover from procedure without complications. Respiratory function will be maintained. Cardiac rhythm will remain stable. Patient temperature will be maintained. Patient and/or family have verbalized understanding of the procedure. Patient Education Chief Complaint/Reason for Test: Cardiac Cath Developmental Category: Adult (18-64 years) Developmentally Appropriate for Age: Yes Learning Barriers: None Education Needs: Procedure Education Method: Verbal Information Taught: Cardiac Cath Educational Evaluation: Able to repeat information Intravenous Access Time IV Size Location DC'd Fluid/Drip Rate Units RN 09:11 PM 18g 1 1/4" Patent On Arrival Lt Antecubital 09:11 PM 20g 1 1/4" Patent On Arrival Rt Antecubital Allergies hydrocodone Vital Signs Time BP (mmHg) HR (bpm) O2 Sat. RR (bpm) LOC 09:12 PM 154 / 98 73 95 % 20 5 = Fully awake and oriented or at pre-proc level 09:20 PM / % 5 = Fully awake and oriented or at pre-proc level 09:20 PM / % 4 = Oriented but drowsy 09:35 PM / % 4 = Oriented but drowsy 09:50 PM / % 4 = Oriented but drowsy 09:22 PM 182 / 125 73 98 % 18 09:26 PM 162 / 110 76 94 % 16 09:31 PM 159 / 96 75 94 % 17 09:36 PM 160 / 105 70 94 % 17 09:41 PM 156 / 107 73 92 % 14 09:46 PM 157 / 118 76 93 % 8 09:51 PM 164 / 104 78 95 % 15 09:56 PM 159 / 105 76 95 % 18 10:01 PM 155 / 105 75 95 % 10:06 PM 160 / 96 75 95 % 38 10:11 PM 169 / 106 78 96 % 20 Procedural Medications Time Medication Dose Units Method Given By 09:20 PM Oxygen 2 L/min nasal cannula Abi Harper RN 09:22 PM Versed 2 mg Intravenous Abi Harper RN 09:22 PM Fentanyl 50 mcg Intravenous Abi Harper RN 09:23 PM Lidocaine 2% 0.5 ml Subcutaneous Tony Ferguson MD, FAC 09:25 PM Heparin 2000 units Nitroglycerin 200 mcg Verapamil 2.5 mg Intraarterial Tony Ferguson MD, FAC 09:35 PM Lidocaine 2% 19 ml Subcutaneous Tony Ferguson MD, FAC 09:37 PM Versed 1 mg Intravenous Abi Harper RN 09:37 PM Fentanyl 25 mcg Intravenous Abi Harper RN 09:41 PM Hydralazine 10 mg Intravenous Abi Harper RN 09:57 PM Aggrastat Bolus: 46 ml Intravenous Abi Harper RN 09:57 PM Aggrastat 12.5mg/250ml 16.5 ml/hr Intravenous Abi Harper RN Chitra Score Preprocedure Postprocedure Activity 2- Moves 4 extremities sustained head lift Activity 2- Moves 4 extremities sustained head lift Circulation 2- SBP +/= 20 points of pre-anesthetic level Circulation 2- SBP +/= 20 points of pre-anesthetic level Consciousness 2- Awake and alert oriented x 3 Consciousness 2- Awake and alert oriented x 3 O2 Saturation 2- Able to maintain O2 satruation of 92% on room air O2 Saturation 2- Able to maintain O2 satruation of 92% on room air Respiratory 2- Able to deep breathe and cough well Respiratory 2- Able to deep breathe and cough well Total Score 10 Total Score 10 Contrast Agent: Isovue Diagnostic Contrast: 190 ml Total Contrast: 190 ml Fluoro Dose: 04142 mGy Activated Clotting Time Time Seconds to Clot 10:05 PM 197 Procedure Log Time Note Enter By 09:10 PM 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 Informed consent was obtained. [facility]: PM Procedure start :[facility] : PM Time: :20 Oxygen on at 2 L/min per nasal cannula by Abi Harper RN [facility] : PM Time: :20 Patient comfortable and pain free: Yes [facility] : PM Time: :20LOC: 5 = Fully awake and oriented or at pre-proc level [facility] : PM Case Start : PM Recorded ECG: HR=74 Condition=Condition 1 : PM Vitals capture started with the following parameters, Patient=Adult, Interval=5 min, Initial Yktqevzg=223 mmHg, Deflation Rate=5 mmHg, Cuff placed on Right Arm 09: PM Clinical Presentation: STEMI or equivalent [facility] : PM Critical cardiac patient with acute HI was brought emergently to the cardiac analyst microbiology lab for immediate coronary angiography and intervention if clinically indicated. [facility]: PM Hair removed from procedure site in procedure lab using clippers. right wrist and Bilateral groin prepped with Chloraprep by Yasmin Hdez RT (R), then patient was draped. Skin intact. [facility] : PM HR=73 bpm, TMHH=302/125 mmhg, SpO2=98.0 %, Resp=18 B/min, EtCO2=32 mmHg, Comment=sr : PM Time out was performed according to hospital policy. Conscious sedation and anesthesia was achieved (see medication log with in this report above) [facility] : PM Time: : Versed 2 mg Intravenous Given by Abi Harper RN [facility] : PM Time: : Fentanyl 50 mcg Intravenous Given by Abi Harper RN mm 09:23 PM Time: 21:23 0.5 ml Lidocaine 2% to right radial Subcutaneous Given by Tony Ferguson MD, [facility] oumm 09:23 PM Pressure channel 1 zero failed. 09:24 PM Pressure channel 1 zero failed. 09:24 PM Pressure channel 1 zeroed. 09:24 PM Unsuccessful access attempt # 1 into the right Radial artery. Manual pressure applied to achieve hemostasis.. oumm 09:25 PM Access obtained by percutaneous puncture. 6Fr 10cm Terumo Glidesheath sheath placed in right Radial artery. [id number] oummers 09:25 PM Time: 21:25 Patient given 2,000 units Heparin, 200 mcg Nitroglycerin, and 2.5 mg Verapamil Intraarterial by Tony Ferguson MD, [facility]. This is given to reduce risk of vessel spasm and thrombosis. oumm 09:26 PM 5Fr TIG catheter inserted over the wire [facility] mm 09:26 PM 0.035 260cm Navilyst 3mmJ wire [id number] oummers 09:26 PM HR=76 bpm, DIDO=147/110 mmhg, SpO2=94.0 %, Resp=16 B/min, EtCO2=35 mmHg, Comment=sr 09:28 PM wire removed oumm 09:28 PM Recorded ECG: HR=79 Condition=Condition 1 09:28 PM Recorded Pressure: Ao, HR=78, Condition=Condition 1 (Aorta) Ao 131/94/112 09:29 PM SVG to the Diagonal angio performed in multiple views. tsmm 09:30 PM RCA angiography performed in multiple views. tsoummers 09:30 PM Recorded Pressure: Ao, HR=72, Condition=Condition 1 (Aorta) Ao 134/97/115 09:30 PM Coronary Dominance: right tsoummers 09:31 PM Catheter removed tsoumm 09:31 PM HR=75 bpm, YFEJ=284/96 mmhg, SpO2=94.0 %, Resp=17 B/min, EtCO2=34 mmHg, Comment=sr 09:32 PM 5Fr 3DRC catheter inserted over the wire [id number] oumm 09:34 PM Catheter removed [facility] 09:35 PM prepping for groin tsoummers 09:35 PM Time: 21:20LOC: 4 = Oriented but drowsy tsoumm 09:35 PM Time: 21:20 Patient comfortable and pain free: Yes oummers 09:35 PM Inflation device was opened. 09:36 PM HR=70 bpm, LDPA=205/105 mmhg, SpO2=94.0 %, Resp=17 B/min, EtCO2=35 mmHg, Comment=sr 09:36 PM Time: 21:35 19 ml Lidocaine 2% to right groin Subcutaneous Given by Tony Ferguson MD, [facility] priti 09:37 PM Time: 21:37 Versed 1 mg Intravenous Given by Abi Harper RN ariadne 09:37 PM Time: 21:37 Fentanyl 25 mcg Intravenous Given by Abi Harper RN 09:38 PM Access obtained by percutaneous puncture. 6Fr 10cm Terumo Lutcher sheath placed in right Femoral artery. [id number] oummers 09:39 PM 5Fr FL 4 catheter inserted over the wire [facility] mmpriti 09:39 PM Catheter removed mm 09:40 PM 5Fr FL5 catheter inserted over the wire [id number] oumm 09:41 PM LCA angiography performed in multiple views. 09:41 PM Time: 21:41 Hydralazine 10 mg Intravenous Given by Abi Harper [facility] 09[facility] PM HR=73 bpm, XIRT=784/107 mmhg, SpO2=92.0 %, Resp=14 B/min, EtCO2=32 mmHg, Comment=sr 09:42 PM Recorded Pressure: Ao, HR=71, Condition=Condition 1 (Aorta) Ao 138/99/117 09:42 PM Catheter removed 09:43 PM 5Fr Pigtail catheter inserted over the wire [facility] tsmmpriti 09:43 PM Catheter crossed the aortic valve and was selectively placed in the left ventricle. Pressures recorded on pullback for left heart catheterization. mm 09:44 PM Bolus angiogram of left Ventricle complete: 10 ml/sec for a total of 30 mls tsoummers 09:44 PM Recorded Pressure: LV, HR=77, Condition=Condition 1 (Left Ventricle) LV 154/2/19 09:45 PM Recorded Pressure: LV, Ao, HR=76, Condition=Condition 1 (Left Ventricle) LV 157/3/20, (Aorta) Ao 157/99/121 09:45 PM Catheter removed tsoummers 09:45 PM 3DRC reinserted tsoummers 09:46 PM HR=76 bpm, JPVG=584/118 mmhg, SpO2=93.0 %, Resp=8 B/min, EtCO2=35 mmHg, Comment=sr 09:47 PM Recorded Pressure: Ao, HR=71, Condition=Condition 1 (Aorta) Ao 134/99/117 09:49 PM Catheter removed tsoummers 09:49 PM 5Fr IM catheter inserted over the wire [id number] tsoummers 09:50 PM Time: 21:35 Patient comfortable and pain free: Yes tsoummers 09:50 PM Time: 21:35LOC: 4 = Oriented but drowsy tsoummers 09:51 PM Recorded Pressure: Ao, HR=79, Condition=Condition 1 (Aorta) Ao 136/103/120 09:51 PM HR=78 bpm, LZTJ=531/104 mmhg, SpO2=95.0 %, Resp=15 B/min, EtCO2=33 mmHg, Comment=sr 09:51 PM Left LEVI to the LAD angio performed in multiple views. tsoummers 09:53 PM Catheter removed tsoummers 09:54 PM Lesion found in Proximal LAD. Pre Stenosis: 100 Pre AMRIT Flow: 0: No Flow/No perfusion tsoummers 09:54 PM Proximal Left Anterior Descending Coronary Artery with 100% stenosis. If graft is supplying this territory, 0 % stenosis. tsoummers 09:54 PM Lesion found in Mid Circumflex. Pre Stenosis: 20 Pre AMRIT Flow: tsoummers 09:55 PM 6Fr JR 4 [place] Bright-Tip guide catheter was used to cannulate the PCI vessel successfully. reused? No tsoummers 09:56 PM HR=76 bpm, FPRS=734/105 mmhg, SpO2=95.0 %, Resp=18 B/min, EtCO2=32 mmHg, Comment=sr 09:57 PM Circumflex, Obtuse Marginal, Left Posterior Descending, and Left Posterolateral Coronary Arteries with 20 % stenosis. If graft is supplying this area, 0 % stenosis tsoummers 09:57 PM Time: 21:57 Aggrastat Bolus: 46 ml Intravenous Given by Abi Harper RN [facility] 09[facility] PM Time: 21:57 Aggrastat 12.5mg/250ml 16.5 ml/hr Intravenous Given by Abi Harper RN [facility] 09:58 PM .014 [place] 190cm guide wire across target lesion- unsuccessful. reused? No tsoummers 09:58 PM 2.0 mm x 8 mm Emerge Monorail balloon across target lesion- successful. reused? No tsoummers 09:59 PM unable to cross lesion to right PDA tsoummers 09:59 PM Lesion found in Right PDA. Pre Stenosis: 90 Pre AMRIT Flow: 3: Complete and Brisk Flow/Perfusion tsoummers 09:59 PM Right Coronary, Right Posterior Descending Arteries with Right Posterolateral and Acute Marginal branches with 90 % stenosis. If graft is supplying this area, 0 % stenosis tsmmers 10:01 PM HR=75 bpm, TNVP=904/105 mmhg, SpO2=95.0 %, EtCO2=33 mmHg, Comment=sr 10:05 PM Time: 21:50LOC: 4 = Oriented but drowsy tsoummers 10:05 PM Time: 21:50 Patient comfortable and pain free: Yes tsoummers 10:05 PM At 22:05 the ACT was 197 seconds. tsmmers 10:06 PM Guide wire removed intact. tsmmers 10:06 PM HR=75 bpm, ZRGA=526/96 mmhg, SpO2=95.0 %, Resp=38 B/min, EtCO2=32 mmHg, Comment=sr 10:06 PM Balloon catheter removed intact not inflated tsoummers 10:07 PM Guide catheter removed intact. tsmmers 10:08 PM Bolus angiogram of right Femoral complete: 4 ml/sec for a total of 7 mls tsoummers 10:09 PM Procedure completed at 22:09 09/03/2018 tsmmers 10:10 PM Did you address AMRIT flow and Dominance? Yes tsmmers 10:11 PM HR=78 bpm, CYTA=647/106 mmhg, SpO2=96 %, Resp=20 B/min 10:11 PM Aggrastat to be ran x 1 hour from start per verbal order Dr. Ferguson, nurse informed during [facility] 10:12 PM Sign out completed: Radiation Dose 1256.23 mGy, 59713 cGy/cm2 Fluoro Time: 14.1 Isovue 370 - 200ml contrast 190 ml given by Tony Ferguson MD, [facility]. Complications: None. The patient was discharged out of the analyst microbiology lab in stable condition. Cardiac Rehab Consult needed: YesConfirmed administered medications: Yes tsoummers 10:12 PM Isovue 370 - 200ml,2 Bottle(s) used. tsoummers 10:12 PM Sheath left in place to be pulled on floor/holding area tsoummers 10:12 PM Arterial sheath pulled, Vasc Band closure device used and was Successful S/N. tsoummers 10:12 PM 10 ml air in Vasc Band. tsoummers 10:12 PM Estimated Blood Loss: minimal tsoummers 10:13 PM Post ECG NSR tsoummers 10:13 PM Post Blood Pressure 169/106 tsoummers 10:13 PM Information taught Cardiac Cath and Vasc Band tsoummers 10:14 PM Education needs Procedure, Plan of Care, Responsibilities of Patient in Care, Disease Process, and Safe & Effective Use of Medications tsoummers 10:14 PM Learning barriers :None tsoummers 10:14 PM Education Methods Verbal tsoummers 10:14 PM Education evaluation Able to repeat information tsoummers 10:14 PM Site status No bleeding/hematoma - Rt Groin as reported by Yasmin Hdez RT (R) at 22:14 tsoummers 10:14 PM Site status No bleeding/hematoma - Rt Wrist as reported by Yasmin Hdez RT (R) at 22:14 tsoummers 10:16 PM Opsite applied tsoummers 10:16 PM Report given to Inez LOCKWOOD Pt taken to ICU Room #8. 22:16 tsoummers 10:17 PM Delay to floor No tsoummers 10:17 PM Family placed in consult room. tsoummers 10:17 PM Complications: None tsoummers 10:24 PM Pt denies any chest pain tsoummers 10:24 PM Report given to Inez LOCKWOOD Pt taken to ICU Room #8. 22:24 tsoummers 10:24 PM Patient out of room: 22:24 tsoummers Complications Complication None Hemodynamics Pressures Site Systolic/A Wave Diastolic/V Wave Mean AO 131 94 112 AO 134 97 115 AO 138 99 117 LV 154 2 19 LV 157 3 20 AO 157 99 121 AO 134 99 117 AO 136 103 120 Post Procedure Information Blood Pressure: 169/106 mmHg Rhythm: NSR Post procedural instructions were given Closure Device Time Device Success/Fail 09/03/2018 10:12:00 PM Mechanical Compression Successful Site Checks Time Location Status Staff Sheath In? Note 10:14 PM Rt Groin No bleeding/hematoma Yasmin Hdez RT (R) 10:14 PM Rt Wrist No bleeding/hematoma Yasmin Hdez RT (R) Pulses Updated by Shannan Perez RN on 09/03/2018 10:26:41 PM electronically signed on 09/03/2018 10:27:51 PM with status of Final
[2018-09-04] MEDS ORDERED: *HR* Atropine Sulfate 1 MG/10 ML SYRINGE ONE (01:41)
[2018-09-04] MEDS: Acetaminophen 325 MG TABLET PO PRN ×2 (06:18→19:46)
[2018-09-04] MEDS: *HR* Ticagrelor 90 MG TABLET PO SCH ×2 (08:10→20:30)
[2018-09-04] MEDS: Aspirin 81 MG TAB.CHEW PO SCH (08:10)
--- NOTE | 2018-09-04 12:54 | Cardiology Progress Note ---
Date of Encounter: 09/04/18 Time of Encounter: 09:00 Assessment and Plan (1) Chest pain Current Visit: Yes Status: Acute Patient presents with chest pain and EKG revealed inferior ST elevation. He is s/p cardiac arrest and PCI to RCA 08/25/18 at [facility]. Daughter reported patient had not taken his DAPT. He was taken urgently to the cardiac ca theterization lab. LHC revealed patent RCA stent, 2/2 patent bypass grafts. EF 35-40%. There was a 90 % stenosis in the PDA and wire was not able pass. Medical management recommended. Records ordered from [facility] to compare findings. Troponin 0.28 and 0.19- possible down trend trend from recent [place]? TTE shows EF 45-50%. Concern for continued non-compliance. Importance of DAPT with asa and plavix stressed with patient. Activity restrictions reviewed. Pt recommended to not drive for at least one week. 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 Risk discussed. Continue statin and bb. Add imdur. Further recommendations after record review. Qualifiers: Chest pain type: unspecified Qualified Code(s): R07.9 - Chest pain, unspecified (2) CAD (coronary artery disease) Current Visit: Yes Status: Acute See plan above. Qualifiers: Coronary Disease-Associated Artery/Lesion type: [place] artery [place] vs. transplanted heart: [place] heart Associated angina: without angina Qualified Code(s): I25.10 - Atherosclerotic heart disease of [place] coronary artery without angina pectoris (3) Tobacco abuse counseling Current Visit: Yes Status: Chronic Discussion w patient/family: The assessment and plan as outlined above was discussed with the patient and/or family members who expressed understanding and agreement. All questions were answered. Thank you for involving us in the care of your patient. Please call with any questions. Objective Vital Signs, Last 4 Hours Pulse Resp BP Pulse Ox 09/04/18 12:00 71 18 97 09/04/18 11:00 75 16 167/113 100 09/04/18 10:27 98 09/04/18 10:00 71 18 148/83 98 09/04/18 09:00 71 16 147/84 97 Results 09/03/18 20:32 09/03/18 20:32 Lab Results 09/03/18 09/03/18 09/03/18 20:32 20:32 20:32 WBC 12.0 H Hgb 14.9 Hct 46.0 Plt Count 414 H INR 1.1 APTT 37.1 H Sodium 141 Potassium 3.8 Chloride 111 H Carbon Dioxide 24 BUN 13 Creatinine 0.89 Glucose 99 Calcium 11.1 H Magnesium 2.2 Troponin I 0.28 H* 09/04/18 10:33 WBC Hgb Hct Plt Count INR APTT Sodium Potassium Chloride Carbon Dioxide BUN Creatinine Glucose Calcium Magnesium Troponin I 0.19 H* Consult Discharge Plan - Plan Referrals: Ketty Rojas MD [Primary Care Provider] -
--- NOTE | 2018-09-04 14:47 | Discharge Summary ---
Orders not resulted at time of discharge: Pending orders 09/04/18 07:00 ECG 12 lead ECG [ECG] Routine Date of Encounter: 09/05/18 Time of Encounter: 14:45 - Discharge Diagnosis (1) Acute coronary syndrome Priority: Primary Status: Acute (2) Chest pain Priority: Primary Status: Acute Qualifiers: Chest pain type: unspecified Qualified Code(s): R07.9 - Chest pain, unspecified (3) CAD (coronary artery disease) Priority: Primary Status: Acute Qualifiers: Coronary Disease-Associated Artery/Lesion type: [place] artery [place] vs. transplanted heart: [place] heart Associated angina: without angina Qualified Code(s): I25.10 - Atherosclerotic heart disease of [place] coronary artery without angina pectoris (4) Tobacco abuse counseling Priority: Secondary Status: Chronic (5) Cardiomyopathy Priority: Primary Status: Acute Qualifiers: Cardiomyopathy type: ischemic Qualified Code(s): I25.5 - Ischemic cardiomyopathy - Hospital Course Hospital course: Mr. Kowalski is a 58 year old male with past medical history of CAD, s/p 2vCABG, s/p recent cardiac arrest and STEMI 09/04/18 at OSH who presented with chest pain. EKG revealed inferior ST elevation and he was taken urgently to the cardiac catheterization lab. LHC revealed patent RCA stent from 09/04/2018, 2/2 patent bypass grafts, and a 90% stenosis in the PDA. Medical management was recommended. LV gram showed EF 35-40%. TTE was completed and showed EF at 45- 50%. Medical records from [place] reviewed. Patient's troponin was greater than 40 on 09/04/18. Troponin appears to be trending down, during this admission troponin was 0.28, 0.19. He was monitored overnight and throughout the day today. He denies recurrent chest pain. His daughter reported that he did stop taking his dual antiplatelet therapy prescribed after his MN. Importance of DAPT with aspirin and Brilinta stressed with patient and family. Indication, use, and side effects of Brilinta reviewed. Possibility of recurrent MN or stopping medication reviewed with patient. Patient voiced understanding. Patient is adament that he goes home today due to multiple reasons. *After further discussion with Dr. Pickens pt decided he would stay overnight and be discharged home tomorrow if no complications. Due to concerns for withdrawl from recreational drugs hospitalist consulted. Pt also requesting sleep aid and pain control medications. 09/05/18- Pt seen by hospitalist for sleep deprivation and possible withdrawl. Noted drug screen positive for opiates and amphetimines. Pt is on adderal at home for narcolepsy and will continue. He did well with observation overnight. Ambulating in room with no chest pain. No SOB or edema. We discussed medication compliance and smoking cessation. He is ready to quit smoking and states he will take his medication. No problem with right femoral access noted. Mild leukocytosis noted. No signs of infection. CXR was negative. Likely reactive from MN. Out-pt f/u will be scheduled. Time spent discussing smoking cessation with patient: 3 to 10 minutes - Time Spent with Patient Total time spent providing and/or coordinating discharge services: Greater than 30 minutes - Discharge Medications Prescriptions: Metoprolol Succinate [Toprol Xl] 25 mg PO DAILY #30 tab.er.24h Ticagrelor [Brilinta] 90 mg PO BID #60 tablet Home Medications: Aripiprazole [Abilify] 10 mg PO DAILY 04/27/16 [History] DULoxetine [Cymbalta] 30 mg PO DAILY 04/27/16 [History] Lisinopril [Zestril] 5 mg PO DAILY 09/19/16 [History] Dextroamphetamine/Amphetamine [Adderall 15 mg Tablet] 20 mg PO BID 01/22/18 [History] Aspirin [Lo-Dose Aspirin EC] 81 mg PO DAILY 09/04/18 [History] Atorvastatin [Lipitor] 40 mg PO HS 09/04/18 [History] Nitroglycerin [Nitrostat] 0.4 mg SL AD PRN 09/04/18 [History] Ticagrelor [Brilinta] 90 mg PO BID #60 tablet 09/04/18 [Rx] Metoprolol Succinate [Toprol Xl] 25 mg PO DAILY #30 tab.er.24h 09/05/18 [Rx] Allergies/Adverse Reactions: Allergy/AdvReac Type Severity Reaction Status Date / Time hydrocodone [From [place]] AdvReac Itching Verified 01/22/18 08:36 Date of admission: 09/03/18 21:54 Primary care physician: Ketty Rojas MD Consults: 09/03/18 21:16 Consult to Cardiac Rehabilitation-Phase1 [CONS] Routine Comment: Reason for Consult: AMI Call Completed: Yes Consult to Nurse Navigator [CONS] Routine Comment: Discharging clinician: Ranjan Beal Anticipated date of discharge: 09/04/18 Physical Examination Vital Signs, Last 4 Hours Pulse Resp BP Pulse Ox 09/04/18 12:00 71 18 97 09/04/18 11:00 75 16 167/113 100 General: Conversant, No Apparent Distress, Other (appears anxious and restless) Neck: No JVD, Normal carotid pulses Cardiac: Reg Rate and Rhythm, Normal S1 and S2, No Murmur Lungs: Normal Breath Sounds, No Wheeze, Rales, Rhonchi Neuro: Alert and responsive, No focal deficits noted Abdomen: Soft, Non-Tender Skin: No rashes noted on visualized skin Musculoskeletal: No Chest Wall Tenderness Extremities: No Clubbing, No Cyanosis, No Edema, Normal Pulses - Patient Status Disposition: Home, Self-Care Condition: Fair Functional capacity at discharge: independent ambulation Overall status at discharge: patient is progressing back to baseline - Discharge Instructions Follow Up With: Ketty Rojas MD [Primary Care Provider] - Additional Instructions: RISK FACTORS: STOP SMOKING: If you smoke, STOP. Smoking or tobacco use significantly increases your risk of heart disease because nicotine causes the arteries to narrow or constrict. It also causes fats to stick to the artery. Your chances of having a heart attack are greatly increased if you continue to smoke. For more information, call the education line for smoking cessation 4-741-BICTDMR EAT A LOW FAT/CHOLESTEROL/SODIUM DIET: This diet may help reduce your chances of having a heart attack. LIFTING: Avoid lifting anything more than 10 pounds for 5-7 days Prior to straining, laughing, sneezing and/or coughing, apply manual pressure directly over insertion site. ACTIVITY: You may walk or climb stairs as tolerated You can resume sexual activity as tolerated In general, you are encouraged to engage in a minimum of 30 minutes or more of moderate intensity physical activity, such as brisk walking, daily or at least 3-4 times weekly BATHING Do not submerge the site into water (bath tub, hot tub, swimming pool) for 1 week. This can be a source for infection into t he blood stream. You may shower after 24 hours SITE CARE: After 24 hours, you may remove the dressing and leave the site open to air. Keep the site clean and dry. Clean gently and pat dry. You can expect bruising and tenderness that gradually resolve within a week or two. Return to work as instructed per your physician Resume driving as instructed per physician Keep all scheduled follow up appointments Resume medications as instructed IMPORTANT: If prescribed a Platelet Aggregation Inhibitor such as, Plavix, Brilinta or Effient: Duration of therapy is minimum one year These medications are often used in combination with Aspirin in prevention of future heart attacks Never discontinue unless consult with your Yarn Bleaching Machine Operator STROKE (CVA) Risk factors for a stroke are: Age, cigarette smoking, diabetes, excessive alcohol consumption, family history, high blood pressure, overweight, physical inactivity, prior stroke, heart attack, diagnosis of carotid artery stenosis or other artery disease. Warning signs: Sudden numbness or weakness of the face, arm or leg; especially on one side of the body, sudden confusion, trouble speaking or understanding, sudden trouble seeing in one or both eyes, sudden trouble walking, dizziness, loss of balance or coordination, sudden severe headache with no cause. Call 911 or go to the Emergency Room. CONGESTIVE HEART FAILURE: If you have been diagnosed with Congestive Heart Failure (CHF) and your symptoms return, make an appointment with your physician Weigh yourself daily. Notify your physician if you have a weight gain of two or more pounds in one day or five or more pounds in one week. If you experience any difficulty breathing, please call 911 BLEEDING: Although the risk of bleeding is minimal, it can happen. If you have any bleeding from the site, apply firm pressure above the puncture site for 10-15 minutes. If the bleeding does not stop, continue manual pressure and call 911 Contact your physician if: You develop a fever greater than 101 degrees Fahrenheit Your site becomes reddened or has any drainage You have an increase in pain or burning at the site or if a large knot forms at the site. If you experience chest pain, shortness of breath, dizziness, or extreme tiredness, stop the activity and rest. Please notify your physicians office if you experience any of these symptoms and they are not relieved by rest please call 911! - Diet and Activity Activity: increase activity as tolerated Diet: low fat, low cholesterol
--- NOTE | 2018-09-04 15:40 | Internal Medicine Consult Note ---
Date of Encounter: 09/04/18 Time of Encounter: 15:10 - Assessment and plan (1) STEMI (ST elevation myocardial infarction) Current Visit: Yes Status: Acute Assessment and plan: s/p LHC, mx per cardiology Qualifiers: Involved coronary artery: unspecified coronary artery Qualified Code(s): I21.3 - ST elevation (STEMI) myocardial infarction of unspecified site (2) Withdrawal complaint Current Visit: Yes Status: Acute Assessment and plan: unable to illicit history of drug abuse or EtOH abuse but there is a concern that he may be abusing opioids takes Adderall at home which can be resumed currently denies any symptoms of opioid or EtOH withdrawal, noted that he does have elevated BP but appears chronic upon reviewing previous admission records since his personal history is not reliable, will pre-emptively place him on CIWA protocol. If he scores high just based on elevated BP, would not administer ativan. check UDS although the utility would be limited at this point (3) Insomnia Current Visit: Yes Status: Acute Assessment and plan: claims that he takes 150mg of trazodone but unable to verify thru pharmacy record would give 75mg PRN and add melatonin 6mg Qualifiers: Insomnia type: unspecified Qualified Code(s): G47.00 - Insomnia, unspecified (4) Tobacco abuse counseling Current Visit: Yes Status: Chronic Assessment and plan: counseling provided - Time Spent With Patient Total time spent is greater than 50% in coordination of care (as documented) at patient's floor/unit and/or counseling patient: 27 mins Internal Medicine - CN: HPI - Data of Consult Patient: new to practice Consult date: 09/04/18 Requesting Physician: Tony Ferguson MD - Consult Narrative Reason for consult: ?withdrawal History of present illness: Mr. Kowalski is a 58 year old male with PMHx of CAD s/p CABG was admitted for chest pain and inferior ST. He had recent cardiac arrest and inferior STEMI s/p PCI to RCA on 08/25/18 at [facility]. Noncompliant to DAPT. He underwent LHC yesterday which revealed patent RCA stent, 2/2 patent bypass grafts. EF 35-40%. There was a 90 % stenosis in the PDA but unable to pass the wire. Medical management was recommended and he was being prepared for discharge. We were consulted for the concern of "drug withdrawal". When I questioned the patient regarding recreational drug use, he absolutely denied any drug use but the information obtained from the RN (who spoke to pt's daughter) was that he may have been abusing opioids on the street. Takes Adderral at home. He denies any g eneralized pain, anxiety, palpitation, shortness of breath, or tremor. Denies any EtOH use and obviously no history of DT. The only complaint that pt endorsed to me was insomnia and requesting for trazodone, which he claims that he takes at home but unable to verify). Past Med Surg Social Fam HX - Past Medical History Attestation: Yes The following information was validated with the patient. Medical history: COPD, coronary artery disease, GERD, hypertension, myocardial infarction, thyroid disease, other Additional medical history: sleep apnea, DLD, ulcertive colitis, hiatal hernia, taylor's esophagus, crohns disease, dyslipemia, Psychiatric history: depression - Past Surgical History Surgical History: coronary bypass (CABG), other Additional surgical history: colonoscopy, egd, cardiac cath, cabg - Social History Smoking Status: Current every day smoker Smokeless Tobacco Status: No Alcohol use: none Drug use: none - Additional Family History Additional family history: Reviewed and non-contributory All systems: reviewed and no additional remarkable complaints except as stated Internal Medicine - CN: Meds RX: Aripiprazole [Abilify] 10 mg PO DAILY 04/27/16 [History] RX: DULoxetine [Cymbalta] 30 mg PO DAILY 04/27/16 [History] RX: Lisinopril [Zestril] 5 mg PO DAILY 09/19/16 [History] RX: Dextroamphetamine/Amphetamine [Adderall 15 mg Tablet] 20 mg PO BID 01/22/18 [History] RX: Aspirin [Lo-Dose Aspirin EC] 81 mg PO DAILY 09/04/18 [History] RX: Atorvastatin [Lipitor] 40 mg PO HS 09/04/18 [History] RX: Metoprolol Tartrate [Lopressor] 25 mg PO BID 09/04/18 [History] RX: Nitroglycerin [Nitrostat] 0.4 mg SL AD PRN 09/04/18 [History] RX: Ticagrelor [Brilinta] 90 mg PO BID #60 tablet 09/04/18 [Rx] Allergy/AdvReac Type Severity Reaction Status Date / Time hydrocodone [From [place]] AdvReac Itching Verified 01/22/18 08:36 Hospitalist - CN: Exam - Constitutional Vitals: Temp Pulse Resp BP Pulse Ox 97.5 F L 71 18 167/113 97 09/04/18 07:33 09/04/18 12:00 09/04/18 12:00 09/04/18 11:00 09/04/18 12:00 Exam: General: Alert and oriented, not in acute distress. HEENT:EOM, pupils equal, round and reactive. Cardiovascular:Normal S1 & S2, No JVD. Pulse regular. Lungs: clear to auscultation, no wheezes/rales Abdomen:Soft, non-tender, no rigidity. Extremities:No deformity or swelling Neurological:Normal cognition and motor skills. Non-focal Skin:Normal color, no rash, no lesions. Pulses:Carotid and radial pulses normal +2. Rest of the physical exam is non contributory Internal Medicine - CN: Reslt - Labs CBC & Chem 7: 09/03/18 20:32 09/03/18 20:32 Labs: Short CBC 09/03/18 Range/Units 20:32 WBC 12.0 H (4.3-11.1) K/mcL Hgb 14.9 (12.9-16.9) g/dL Hct 46.0 (37.5-50.1) % Plt Count 414 H (140-400) K/mcL Neutrophils # 6.0 (1.6-8.9) K/mcL BMP 09/03/18 20:32 Sodium 141 Potassium 3.8 Chloride 111 H Carbon Dioxide 24 BUN 13 Creatinine 0.89 Glucose 99 Calcium 11.1 H Cardiac Enzymes 09/03/18 09/04/18 Range/Units 20:32 10:33 Troponin I 0.28 H* 0.19 H* (< 0.04) ng/mL - ABG Interpretation ABG results: PT/INR, D-dimer PT 12.6 Seconds (9.4-12.1) H 09/03/18 20:32 - Impressions Impressions Chest X-Ray 09/03/18 20:27 IMPRESSION: Stable chest x-ray. No definite acute disease. D/ / Timoteo Delgado MD / Timoteo Delgado MD Interpreting Provider: Timoteo Delgado MD Echocardiogram 09/03/18 21:16 Impressions: LVEF 45-50%. Severe concentric left ventricular hypertrophy. Mild segmental left ventricular systolic dysfunction. Normal left ventricular diastolic function. Atypical septal motion consistent with bundle branch block. Normal right ventricular structure and function. Trace tricuspid regurgitation. Unable to estimate RVSP due to lack of TR jet. Left Ventricular Wall Motion: Rest Echo Findings The apical inferior, mid inferior, basal inferior and mid inferior lateral de leon were hypokinetic. All other wall segments showed normal motion. Findings: Study Quality * Technically adequate exam. ECG Findings * Sinus rhythm with BBB. Left Ventricle * LVEF 45-50%. * Severe concentric left ventricular hypertrophy. * Mild segmental left ventricular systolic dysfunction. * Normal left ventricular diastolic function. * Atypical septal motion consistent with bundle branch block. * Definity echo contrast was used. * There is no LV thrombus. Right Ventricle * Normal right ventricular structure and function. Left Atrium * Mildly dilated left atrium. Right Atrium * Normal right atrial size. Interatrial Septum * No evidence of PFO by color Doppler. Aortic Valve * Trileaflet aortic valve. * No aortic regurgitation. * No aortic stenosis. * Normal aortic valve structure. Mitral Valve * Normal mitral valve structure. * No mitral regurgitation. * No mitral stenosis. Tricuspid Valve * Normal tricuspid valve function. * Trace tricuspid regurgitation. * No tricuspid stenosis. * Unable to estimate RVSP due to lack of TR jet. Pulmonic Valve * Normal pulmonic valve structure. * No pulmonic stenosis. * Trace pulmonic regurgitation. Aorta * Normally sized aortic root. Pericardium * The pericardium appears normal. IVC * The IVC is not well evaluated. Consult Discharge Plan - Plan Additional Instructions: RISK FACTORS: STOP SMOKING: If you smoke, STOP. Smoking or tobacco use significantly increases your risk of heart disease because nicotine causes the arteries to narrow or constrict. It also causes fats to stick to the artery. Your chances of having a heart attack are greatly increased if you continue to smoke. For more information, call the education line for smoking cessation 8-685-UDPUCIW EAT A LOW FAT/CHOLESTEROL/SODIUM DIET: This diet may help reduce your chances of having a heart attack. LIFTING: Avoid lifting anything more than 10 pounds for 5-7 days Prior to straining, laughing, sneezing and/or coughing, apply manual pressure directly over insertion site. ACTIVITY: You may walk or climb stairs as tolerated You can resume sexual activity as tolerated In general, you are encouraged to engage in a minimum of 30 minutes or more of moderate intensity physical activity, such as brisk walking, daily or at least 3-4 times weekly BATHING Do not submerge the site into water (bath tub, hot tub, swimming pool) for 1 week. This can be a source for infection into the blood stream. You may shower after 24 hours SITE CARE: After 24 hours, you may remove the dressing and leave the site open to air. Keep the site clean and dry. Clean gently and pat dry. You can expect bruising and tenderness that gradually resolve within a week or two. Return to work as instructed per your physician Resume driving as instructed per physician Keep all scheduled follow up appointments Resume medications as instructed IMPORTANT: If prescribed a Platelet Aggregation Inhibitor such as, Plavix, Brilinta or Effient: Duration of therapy is minimum one year These medications are often used in combination with Aspirin in prevention of future heart attacks Never discontinue unless consult with your Corporate Physical Security Supervisor STROKE (CVA) Risk factors for a stroke are: Age, cigarette smoking, diabetes, excessive alcohol consumption, family history, high blood pressure, overweight, physical inactivity, prior stroke, heart attack, diagnosis of carotid artery stenosis or other artery disease. Warning signs: Sudden numbness or weakness of the face, arm or leg; especially on one side of the body, sudden confusion, trouble speaking or understanding, sudden trouble seeing in one or both eyes, sudden trouble walking, dizziness, loss of balance or coordination, sudden severe headache with no cause. Call 911 or go to the Emergency Room. CONGESTIVE HEART FAILURE: If you have been diagnosed with Congestive Heart Failure (CHF) and your symptoms return, make an appointment with your physician Weigh yourself daily. Notify your physician if you have a weight gain of two or more pounds in one day or five or more pounds in one week. If you experience any difficulty breathing, please call 911 BLEEDING: Although the risk of bleeding is minimal, it can happen. If you have any bleed ing from the site, apply firm pressure above the puncture site for 10-15 minutes. If the bleeding does not stop, continue manual pressure and call 911 Contact your physician if: You develop a fever greater than 101 degrees Fahrenheit Your site becomes reddened or has any drainage You have an increase in pain or burning at the site or if a large knot forms at the site. If you experience chest pain, shortness of breath, dizziness, or extreme tiredness, stop the activity and rest. Please notify your physicians office if you experience any of these symptoms and they are not relieved by rest please call 911! Referrals: Ketty Rojas MD [Primary Care Provider] - Prescriptions: RX: Ticagrelor [Brilinta] 90 mg PO BID #60 tablet
[2018-09-04] MEDS: Isosorbide MONOnitrate (24 HR) 30 MG TAB.ER.24H PO SCH (17:12)
[2018-09-04] MEDS ORDERED: *HR* LORazepam 2 MG/ML VIAL IVP PRN ×3 (17:25)
[2018-09-04] MEDS ORDERED: traZODone 50 MG TABLET PO PRN (17:26)
[2018-09-04] MEDS ORDERED: Melatonin 3 MG TABLET PO SCH (21:00)
[2018-09-05 05:33] LABS: Amphetamine Screen,Urine Negative ng/mL (Cutoff=1000); Barbiturate Screen,Urine Negative ng/mL (Cutoff=200); Benzodiazepines Screen,Urine Positive ng/mL (Cutoff=200); Cannabinoid Screen,Urine Negative ng/mL (Cutoff = 50); Cocaine Screen,Urine Negative ng/mL (Cutoff= 300); Opiate Screen,Urine Positive ng/mL (Cutoff=300); Phencyclidine Screen,Urine Negative ng/mL (Cutoff=25)
[2018-09-05 08:22] LABS: Basophils # 0.1 K/mcL (0.0-0.2); Basophils % 0.7 %; Eosinophils # 0.3 K/mcL (0.0-0.6); Eosinophils % 2.6 %; Hematocrit 42.3 % (37.5-50.1); Immature Granulocytes % 0.7 % (0-4); Lymphocytes # 1.9 K/mcL (0.6-4.6); Lymphocytes % 14.7 %; Mean Corpuscular HGB Conc 33.1 g/dL (31.6-35.5); Mean Corpuscular Hemoglobin 29.4 pg (28.0-33.3); Mean Corpuscular Volume 88.9 fL (83.0-100.0); Mean Platelet Volume 8.6 fL (9.4-12.4); Monocytes # 1.2 K/mcL (0.0-1.3); Monocytes % 9.1 %; Neutrophils # 9.6 K/mcL (1.6-8.9); Platelet Count 395 K/mcL (140-400); Red Blood Count 4.76 M/mcL (4.19-5.50); Red Cell Distribution Width 13.1 % (11.5-14.5); Segmented Neutrophils % 72.2 %
[2018-09-05 08:44] LABS: BUN/Creatinine Ratio 14 (6-26); Blood Urea Nitrogen 12 mg/dL (6-20); Calcium 10.2 mg/dL (8.6-10.3); Carbon Dioxide 21 mEq/L (23-29); Chloride 111 mEq/L (98-107); Glucose 110 mg/dL (70-105); Osmolality,Calculated 288 (280-300); Potassium 3.9 mEq/L (3.5-5.1); Sodium 139 mEq/L (136-145); eGFR For Non-African Americans > 60 (> 60)
[2018-09-05] MEDS: *HR* Ticagrelor 90 MG TABLET PO SCH (09:03)
[2018-09-05] MEDS: Isosorbide MONOnitrate (24 HR) 30 MG TAB.ER.24H PO SCH (09:03)
[2018-09-05] MEDS: Aspirin 81 MG TAB.CHEW PO SCH (09:03)
[2018-09-05 09:19] VITALS: BP 156/101
--- NOTE | 2018-09-05 09:58 | Cardiology Progress Note ---
Date of Encounter: 09/05/18 Time of Encounter: 09:00 Assessment and Plan (1) Acute coronary syndrome Current Visit: Yes Status: Acute S/p urgent LHC for ST elevation. S/p cardiac arrest, TX and PCI to the RCA 08/25/2018 at outside hospital. No intervention indicated on an urgent LHC on 09/03/2018. Patient noted to be noncompliant with medications. He states he will now be compliant. Importance of the Dapt with aspirin and Brilinta uninterrupted for a minimum of 1 year reviewed. Patient voices understanding. Continue statin and beta pillo. He is ready for discharge home later today. Cardiac rehab ordered. (2) Chest pain Current Visit: Yes Status: Acute LHC revealed patent RCA stent, 2/2 patent bypass grafts. EF 35-40%. There was a 90 % stenosis in the PDA and wire was not able pass. Medical management recommended. Patient was apparently not taking any of his medications. We have restarted his medications and he is now chest pain-free. Troponin 0.28 and 0.19- possible down trend trend from recent TX? Troponin greater than 40 on 08/26/18. TTE shows EF 45-50%. Mildly reduced from EF on TTE 08/26/18 was 55%. Concern for continued non-compliance. Importance of DAPT with asa and brilinta stressed with patient. Activity restrictions reviewed. Pt recommended to not drive for at least one week. 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 Risk discussed. Continue statin and bb. Out-pt f/u will be coordinated. Qualifiers: Chest pain type: unspecified Qualified Code(s): R07.9 - Chest pain, unspecified (3) CAD (coronary artery disease) Current Visit: Yes Status: Acute See plan above. Qualifiers: Coronary Disease-Associated Artery/Lesion type: [place] artery [place] vs. transplanted heart: [place] heart Associated angina: without angina Qualified Code(s): I25.10 - Atherosclerotic heart disease of [place] coronary artery without angina pectoris (4) Tobacco abuse counseling Current Visit: Yes Status: Chronic (5) Cardiomyopathy Current Visit: Yes Status: Acute Mild ICMP. EF 35-40% on LHC and 45-50% on TTE. He is currently euvolemic. Low-sodium diet recommended. We will change metoprolol tart treat to metoprolol succinate. Continue lisinopril. Qualifiers: Cardiomyopathy type: ischemic Qualified Code(s): I25.5 - Ischemic cardiomyopathy Discussion w patient/family: The assessment and plan as outlined above was discussed with the patient and/or family members who expressed understanding and agreement. All questions were answered. Thank you for involving us in the care of your patient. Please call with any questions. Objective Vital Signs, Last 4 Hours Temp Pulse Resp BP Pulse Ox 09/05/18 09:00 75 20 09/05/18 08:03 97.3 F L 09/05/18 08:00 77 16 156/101 94 09/05/18 07:00 71 18 Results 09/05/18 08:08 09/05/18 08:08 Lab Results 09/04/18 09/05/18 09/05/18 10:33 08:08 08:08 WBC 13.2 H Hgb 14.0 Hct 42.3 Plt Count 395 Sodium 139 Potassium 3.9 Chloride 111 H Carbon Dioxide 21 L BUN 12 Creatinine 0.85 Glucose 110 H Calcium 10.2 Troponin I 0.19 H* Consult Discharge Plan - Plan Additional Instructions: RISK FACTORS: STOP SMOKING: If you smoke, STOP. Smoking or tobacco use significantly increases your risk of heart disease because nicotine causes the arteries to narrow or constrict. It also causes fats to stick to the artery. Your chances of having a heart attack are greatly increased if you continue to smoke. For more information, call the education line for smoking cessation 8-193-BMZOYRZ EAT A LOW FAT/CHOLESTEROL/SODIUM DIET: This diet may help reduce your chances of having a heart attack. LIFTING: Avoid lifting anything more than 10 pounds for 5-7 days Prior to straining, laughing, sneezing and/or coughing, apply manual pressure directly over insertion site. ACTIVITY: You may walk or climb stairs as tolerated You can resume sexual activity as tolerated In general, you are encouraged to engage in a minimum of 30 minutes or more of moderate intensity physical activity, such as brisk walking, daily or at least 3-4 times weekly BATHING Do not submerge the site into water (bath tub, hot tub, swimming pool) for 1 week. This can be a source for infection into the blood stream. You may shower after 24 hours SITE CARE: After 24 hours, you may remove the dressing and leave the site open to air. Keep the site clean and dry. Clean gently and pat dry. You can expect bruising and tenderness that gradually resolve within a week or two. Return to work as instructed per your physician Resume driving as instructed per physician Keep all scheduled follow up appointments Resume medications as instructed IMPORTANT: If prescribed a Platelet Aggregation Inhibitor such as, Plavix, Julieta linta or Effient: Duration of therapy is minimum one year These medications are often used in combination with Aspirin in prevention of future heart attacks Never discontinue unless consult with your [employer] STROKE (CVA) Risk factors for a stroke are: Age, cigarette smoking, diabetes, excessive alcohol consumption, family history, high blood pressure, overweight, physical inactivity, prior stroke, heart attack, diagnosis of carotid artery stenosis or other artery disease. Warning signs: Sudden numbness or weakness of the face, arm or leg; especially on one side of the body, sudden confusion, trouble speaking or understanding, sudden trouble seeing in one or both eyes, sudden trouble walking, dizziness, loss of balance or coordination, sudden severe headache with no cause. Call 911 or go to the Emergency Room. CONGESTIVE HEART FAILURE: If you have been diagnosed with Congestive Heart Failure (CHF) and your symptoms return, make an appointment with your physician Weigh yourself daily. Notify your physician if you have a weight gain of two or more pounds in one day or five or more pounds in one week. If you experience any difficulty breathing, please call 911 BLEEDING: Although the risk of bleeding is minimal, it can happen. If you have any bleeding from the site, apply firm pressure above the puncture site for 10-15 minutes. If the bleeding does not stop, continue manual pressure and call 911 Contact your physician if: You develop a fever greater than 101 degrees Fahrenheit Your site becomes reddened or has any drainage You have an increase in pain or burning at the site or if a large knot forms at the site. If you experience chest pain, shortness of breath, dizziness, or extreme tiredness, stop the activity and rest. Please notify your physicians office if you experience any of these symptoms and they are not relieved by rest please call 911! Referrals: Ketty Rojas MD [Primary Care Provider] - Prescriptions: Metoprolol Succinate [Toprol Xl] 25 mg PO DAILY #30 tab.er.24h Ticagrelor [Brilinta] 90 mg PO BID #60 tablet
--- NOTE | 2018-09-06 11:03 | Electrocardiograph Report ---
[place] [address] Test Date: 2018-09-03 Pat Name: Jamar Kowalski Department: 104 Room: [facility] Gender: M Family Mediator: JULIAN : 1960 Requested By: Tony Ferguson Order Number: [id number] Reading MD: Valencia Pina Measurements Intervals [place] Rate: 74 P: 32 WV: 148 QRS: -44 QRSD: 116 T: 114 QT: 380 QTc: 408 Interpretive Statements SINUS RHYTHM ACUTE INFERIOR MYOCARDIAL INFARCTION LEFT VENTRICULAR HYPERTROPHY AND ST-T CHANGE Electronically Signed On 09-06-2018 11:02:04 EST by Valencia Pina
--- NOTE | 2018-09-06 15:39 | Electrocardiograph Report ---
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
== END 2018-09-05 10:45 | disposition home or self-care (01) | DRG 281 ==
LOC: EMEROOARM 20:09 → ICNU 21:04 → EMEROOARM 21:06 → ICNU 21:54
PROVIDERS: ADMIT Emergency Medicine; ATTEND Emergency Medicine

== ENCOUNTER 2018-11-04 03:01 | Observation (INO) ==
[2018-11-04] MEDS ORDERED: Nitroglycerin 0.4 MG TAB.SUBL SL PRN (04:09)
--- NOTE | 2018-11-04 04:53 | Internal Med History&Physical ---
Date of Encounter: 11/04/18 Time of Encounter: 04:50 Internal Medicine - H&P: HPI Chief complaint: chest pain Admitted From: Hospital to Hospital Transfer Plans for Post Hospital Care: Home History of present illness: Jamar Kowalski is a 58-year-old male who is a current every day smoker with a history significant for coronary artery disease status post 2 vessel CABG in 2005 and cardiac arrest secondary to STEMI on 08/25/18 for which she underwent stent placement to his RCA. He was seen here on 09/03/18 with chest pain and found to have another STEMI undergoing LHC finding patency of the mid RCA stent as well as the 2 bypass grafts however there is 100% stenosis in the proximal LAD and 90% stenosis in the right PDA were identified. No interventions were performed as it appears those territories were being supplied by the grafts. He was also seen to have an EF of 35-40%. It was noted that he had been non-adherent to therapy so this measure was reinforced. 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 He was started on heparin drip and given 1mg lorazepam. Troponins were negative x 2 there prior to his transfer here. On arrival now he reports feeling well and being chest pain free. He does acknowledge missing a few doses weekly of his DAPT. He reportedly quit smoking 2 months ago. Past Med Surg Social Fam HX - Past Medical History Medical history: COPD, coronary artery disease, GERD, hypertension, myocardial infarction, thyroid disease, other Additional medical history: sleep apnea, DLD, ulcertive colitis, hiatal hernia, taylor's esophagus, crohns disease, dyslipemia, MIx2 Psychiatric history: depression - Past Surgical History Surgical History: coronary bypass (CABG), other Additional surgical history: colonoscopy, egd, cardiac cath w/ 2 stents in August 2018, CABG 2006 - Social History Smoking Status: Former smoker Smokeless Tobacco Status: No Alcohol use: none Drug use: none - Family History Mother History Unknown: Yes Father History Unknown: Yes Internal Medicine - H&P: Meds Aripiprazole [Abilify] 10 mg PO DAILY 04/27/16 [History] DULoxetine [Cymbalta] 30 mg PO DAILY 04/27/16 [History] Lisinopril [Zestril] 5 mg PO DAILY 09/19/16 [History] Dextroamphetamine/Amphetamine [Adderall 15 mg Tablet] 20 mg PO BID 01/22/18 [History] Aspirin [Lo-Dose Aspirin EC] 81 mg PO DAILY 09/04/18 [History] Atorvastatin [Lipitor] 40 mg PO HS 09/04/18 [History] Nitroglycerin [Nitrostat] 0.4 mg SL AD PRN 09/04/18 [History] Ticagrelor [Brilinta] 90 mg PO BID #60 tablet 09/04/18 [Rx] Metoprolol Succinate [Toprol Xl] 25 mg PO DAILY #30 tab.er.24h 09/05/18 [Rx] Allergy/AdvReac Type Severity Reaction Status Date / Time hydrocodone [From [place]] AdvReac Itching Verified 01/22/18 08:36 All Systems PM: A 10-system review of systems was performed and is negative for pertinent findin gs except as documented above in the HPI. - Constitutional Vitals: Temp Pulse Resp BP Pulse Ox 97.5 F L 68 17 145/94 97 11/04/18 03:22 11/04/18 03:22 11/04/18 03:22 11/04/18 03:22 11/04/18 03:22 Exam: Vitals: Reviewed General: Well developed male lying comfortably in bed in no acute distress. Skin: Warm and supple. HEENT: Moist mucous membranes. No conjunctivae pallor. Neck: No lymphadenopathy. No JVD. No carotid bruits. No palpable thyroid. Chest: Normal thoracic expansion. Normal breath sounds. Clear to auscultation. Heart: Normal S1 & S2; rhythmic. 3/6 systolic murmur at the apex. Abdomen: Non-distended, soft and non-tender to palpation. No peritoneal reaction. Extremities: No clubbing, cyanosis or edema. No calf tenderness. Normal distal pulses. Neurological: Awake, alert and oriented to person, place and time. No focal deficits. Psych: Affect appropriate. - Assessment and plan (1) Unstable angina Current Visit: Yes Status: Acute Assessment and plan: The patient has known significant coronary artery disease and his chest pain seemingly triggered by physical exertion and relieved with rest and nitroglycerin is consistent with angina. While he does have persistent vessel disease, his non-strict adherence seems to be a major issue which can easily propel him back into the first situation that led him to cardiac arrest with occlusion of his BMS. This was reinforced. Will discontinue the heparin drip he was started on at the OSH, repeat a troponin (3rd) and continue DAPT w/ high intensity statin. He will benefit from cardiology evaluation. EKG as reviewed by me shows signs of a prior inferior CO and T-wave inversions in the lateral leads. (2) HTN (hypertension) Current Visit: Yes Status: Acute Assessment and plan: Will continue daily lisinopril Qualifiers: Hypertension type: essential hypertension Qualified Code(s): I10 - Essential (primary) hypertension (3) Depression Current Visit: Yes Status: Chronic Assessment and plan: Will await confirmation that he continues to take Abilify and Cymbalta prior to initiation. For now he appears mentally stable. Qualifiers: Depression Type: unspecified Qualified Code(s): F32.9 - Major depressive disorder, single episode, unspecified (4) Tobacco abuse counseling Current Visit: Yes Status: Chronic Assessment and plan: Continued education and reinforcement given. - Time Spent With Patient Total time spent is greater than 50% in coordination of care (as documented) at patient's floor/unit and/or counseling patient: Greater than 35 minutes
[2018-11-04 05:36] LABS: Hematocrit 47.9 % (37.5-50.1); Hemoglobin 15.8 g/dL (12.9-16.9); Mean Corpuscular Hemoglobin 28.7 pg (28.0-33.3); Mean Corpuscular Volume 86.9 fL (83.0-100.0); Platelet Count 292 K/mcL (140-400); Red Blood Count 5.51 M/mcL (4.19-5.50); Red Cell Distribution Width 13.9 % (11.5-14.5)
[2018-11-04 05:37] LABS: Basophils # 0.1 K/mcL (0.0-0.2); Basophils % 1.2 %; Eosinophils # 0.6 K/mcL (0.0-0.6); Eosinophils % 6.4 %; Immature Granulocytes % 0.9 % (0-4); Lymphocytes # 2.3 K/mcL (0.6-4.6); Lymphocytes % 25.1 %; Mean Platelet Volume 8.5 fL (9.4-12.4); Monocytes # 0.9 K/mcL (0.0-1.3); Monocytes % 9.5 %; Neutrophils # 5.3 K/mcL (1.6-8.9); Segmented Neutrophils % 56.9 %
[2018-11-04 05:43] LABS: Heparin anti-factor XA UFH 0.01 IU/mL (0.30-0.70); Prothrombin Time 11.7 Seconds (9.4-12.1)
[2018-11-04 05:46] LABS: Activated Partial Thrombo Time 33.6 Seconds (26.0-36.0)
[2018-11-04 05:57] LABS: Troponin I < 0.03 ng/mL (< 0.04)
[2018-11-04 06:00] LABS: BUN/Creatinine Ratio 16 (6-26); Blood Urea Nitrogen 14 mg/dL (6-20); Carbon Dioxide 25 mEq/L (23-29); Chloride 109 mEq/L (98-107); Glucose 98 mg/dL (70-105); Osmolality,Calculated 292 (280-300); Potassium 3.6 mEq/L (3.5-5.1); Sodium 141 mEq/L (136-145); eGFR For Non-African Americans > 60 (> 60)
[2018-11-04] MEDS ORDERED: *HR* Ticagrelor 90 MG TABLET PO SCH (09:00)
[2018-11-04] MEDS ORDERED: Aspirin Enteric Coated 81 MG Tablet PO SCH (09:00)
[2018-11-04] MEDS ORDERED: Metoprolol XL (24 HR) Succ 25 MG TAB.ER.24H PO SCH (09:00)
--- NOTE | 2018-11-04 10:26 | Cardiology Progress Note ---
<Ranjan Beal Kenisha - Last Filed: 11/04/18 10:22> Date of Encounter: 11/04/18 Time of Encounter: 10:00 Assessment and Plan (1) Atypical chest pain Current Visit: Yes Status: Acute C/o chest pain with deep breaths. Decribes pleuritic type chest pain that is not like his PA. Last C 09/03/19 showed patent RCA stent and 2/2 patent bypass grafts. 90% RPDA stenosis with mm recommended. EF 35-40%. TTE 09/03/19- EF 35-40%. Troponin is negative x2. (troponin negative at outside hospital.) EKG -SR with Prior inferior PA. No ST elevation. Importance of compliance with medications discussed and he voiced understanding. Possibility of PA and even d/t not taking DAPT stressed. Continue asa, brilinta, statin, and bb. Add low dose imdur. Check limited TTE. Smoking cessation encouraged. He is trying to quit. (2) CAD (coronary artery disease) Current Visit: Yes Status: Acute [facility] 09/03/19 revealed patent RCA stent from 08/25/2018, 2/2 patent bypass grafts, and a 90% stenosis in the PDA. Medical management was recommended. Continue medical management as described above. Add imdur. Qualifiers: Coronary Disease-Associated Artery/Lesion type: [place] artery [place] vs. transplanted heart: [place] heart Associated angina: with stable angina Qualified Code(s): I25.118 - Atherosclerotic heart disease of [place] coronary artery with other forms of angina pectoris (3) Cardiomyopathy Current Visit: No Status: Acute H/o ICMP. EF 35-40%. Currently euvolemic. Low sodium diet recommended. Daily weights. Continue BB and aceI. Qualifiers: Cardiomyopathy type: ischemic Qualified Code(s): I25.5 - Ischemic cardiomyopathy Discussion w patient/family: The assessment and plan as outlined above was discussed with the patient and/or family members who expressed understanding and agreement. All questions were answered. Thank you for involving us in the care of your patient. Please call with any questions. Subjective Principal diagnosis: chest pain Interval history: Mr. Kowalski is a 58-year old male with history of inferior STEMI 09/04/19, recurrent PA 09/05/19 due to non-compliance, ICMP with EF 35-40%, and tobacco abuse who presents with chest pain. C/o chest pain with deep breaths after doing strenous activity at work. States he lost his NTG. Denies alleviating factors. States pain is now resolved. He does admit to missing occasional dose of Brilinta. He is trying to quit smoking. Objective Vital Signs, Last 4 Hours Temp Pulse Resp BP Pulse Ox 11/04/18 08:27 97.1 F L 75 15 152/93 97 General: Conversant, No Apparent Distress, Other (Drowsy. ) HEENT: Atraumatic, Normocephaly, Mucus Membranes Moist Neck: No JVD, Normal carotid pulses Cardiac: Reg Rate and Rhythm, Normal S1 and S2, No Murmur Lungs: Normal Breath Sounds, No Wheeze, Rales, Rhonchi Neuro: Alert and responsive, No focal deficits noted Abdomen: Soft, Non-Tender Skin: No rashes noted on visualized skin Musculoskeletal: No Chest Wall Tenderness Extremities: No Clubbing, No Cyanosis, No Edema, Normal Pulses Results 11/04/18 05:13 11/04/18 05:13 Lab Results 11/04/18 11/04/18 11/04/18 05:13 05:13 05:13 WBC 9.2 Hgb 15.8 Hct 47.9 Plt Count 292 INR 1.0 APTT 33.6 Sodium 141 Potassium 3.6 Chloride 109 H Carbon Dioxide 25 BUN 14 Creatinine 0.87 Glucose 98 Calcium 10.0 Troponin I < 0.03 - Imaging and Cardiology Echo: report reviewed Cardiac cath: report reviewed Consult Discharge Plan - Plan Referrals: Ketty Rojas MD [Primary Care Provider] - 11/12/18 1:40 pm <Valencia Pina - Last Filed: 11/04/18 13:12> Date of Encounter: 11/04/18 Assessment and Plan Discussion w patient/family: The assessment and plan as outlined above was discussed with the patient and/or family members who expressed understanding and agreement. All questions were answered. Thank you for involving us in the care of your patient. Please call with any questions. Objective Vital Signs, Last 4 Hours Temp Pulse Resp BP Pulse Ox 11/04/18 11:15 97.3 F L 63 17 134/74 97 Results 11/04/18 05:13 11/04/18 05:13 Lab Results 02/11/04/18 11/04/18 05:13 05:13 05:13 WBC 9.2 Hgb 15.8 Hct 47.9 Plt Count 292 INR 1.0 APTT 33.6 Sodium 141 Potassium 3.6 Chloride 109 H Carbon Dioxide 25 BUN 14 Creatinine 0.87 Glucose 98 Calcium 10.0 Troponin I < 0.03 - Attending Attestation Patient was seen and evaluated independently by me. Findings, assessment and plan were discussed at length with patient, questions answered. Agree with nurse practitioner's/resident's documentation. Addition as follows, 58 yoCM ho CABG last [facility] [id number] patent 2/2 grafts and RCA stent, HFrEF EF 35-40% 2017 P/w one episode of exertional chest pain yesterday after more than usual strenous physical activity, lasting 1 hr, relief by ASA, last episode of cp 2 months ago. Known medication non-complaince. No ischemic ECG changes, trop neg. No complaints on interview. VSS, CTA, RR, no LE edema. A: Chest pain, stable angina, class I Medication non-compliance CAD s/p CABG HFrEF, euvolemia P: pending repeated TTE emphasized med compliance, c/w DAPT, BB and saul if no RWMA on TTE, outpatient f/u Valencia Pina MD, PhD
[2018-11-04] MEDS ORDERED: Isosorbide MONOnitrate (24 HR) 30 MG TAB.ER.24H PO SCH (10:45)
[2018-11-04 11:20] VITALS: BP 134/74
[2018-11-04] MEDS ORDERED: *HR* Heparin 5,000 UNIT/ML VIAL SQ SCH (14:00)
--- NOTE | 2018-11-04 14:25 | Discharge Summary ---
- NOTES TO OUTPATIENT PROVIDER Notes to Outpatient Provider: Follow-up with cardiology on Saturday. Follow up with PCP in one week. Orders not resulted at time of discharge: Pending orders 11/04/18 04:48 Drug Screen, Urine [UCHEM] Stat 11/04/18 10:39 EV limited echocardiogram Routine Date of Encounter: 11/04/18 Time of Encounter: 14:24 - Discharge Diagnosis (1) Chest pain Priority: Primary Status: Acute Qualifiers: Chest pain type: unspecified Qualified Code(s): R07.9 - Chest pain, unspecified (2) CAD (coronary artery disease) Priority: Secondary Status: Acute Qualifiers: Coronary Disease-Associated Artery/Lesion type: [place] artery [place] vs. transplanted heart: [place] heart Associated angina: with stable angina Qualified Code(s): I25.118 - Atherosclerotic heart disease of [place] coronary artery with other forms of angina pectoris (3) HTN (hypertension) Priority: Secondary Status: Acute Qualifiers: Hypertension type: essential hypertension Qualified Code(s): I10 - Essential (primary) hypertension (4) Depression Priority: Secondary Status: Chronic Qualifiers: Depression Type: unspecified Qualified Code(s): F32.9 - Major depressive disorder, single episode, unspecified Hospital course: Jamar Kowalski is a 58-year-old male with known HTN, HLD, and CAD status post 2 vessel CABG in 2005 and cardiac arrest secondary to STEMI on 08/25/18 for which she underwent stent placement to his RCA. He was seen here on 09/03/18 with chest pain and found to have another STEMI undergoing C finding patency of the mid RCA stent as well as the 2 bypass grafts however there is 100% stenosis in the proximal LAD and 90% stenosis in the right PDA were identified. No interventions were performed as it appears those territories were being supplied by the grafts. He was also seen to have an EF of 35-40%. It was noted that he had been non-adherent to therapy so this measure was reinforced. 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 Pt was admitted in the hospital and placed him secured entrance monitor.His EKG did not show acute ischemic changes. Pt was seen by cardio who recommend to add Imdur to his medications and no interventions suggested. Pt denied any CP now. I did job placement counselor the pt about importance of taking his cardiac medications. He does need f/u 2 D Echo so recommend him to see manager inspection as an out pt this Saturday who can do out pt 2 D Echo. Pt did mention he quit smoking since Aug 2018. - Time Spent with Patient Total time spent providing and/or coordinating discharge services: - Discharge Medications Prescriptions: New Isosorbide MONOnitrate (24 HR) [Imdur] 30 mg PO DAILY #30 tab.er.24h Continue Aripiprazole [Abilify] 10 mg PO DAILY DULoxetine [Cymbalta] 30 mg PO DAILY Lisinopril [Zestril] 5 mg PO DAILY Dextroamphetamine/Amphetamine [Adderall 15 mg Tablet] 20 mg PO BID Atorvastatin [Lipitor] 40 mg PO HS Aspirin [Lo-Dose Aspirin EC] 81 mg PO DAILY Nitroglycerin [Nitrostat] 0.4 mg SL AD PRN PRN Reason: CHEST PAIN X3 DOSES Ticagrelor [Brilinta] 90 mg PO BID #60 tablet Metoprolol Succinate [Toprol Xl] 25 mg PO DAILY #30 tab.er.24h Home Medications: Aripiprazole [Abilify] 10 mg PO DAILY 04/27/16 [History] DULoxetine [Cymbalta] 30 mg PO DAILY 04/27/16 [History] Lisinopril [Zestril] 5 mg PO DAILY 09/19/16 [History] Dextroamphetamine/Amphetamine [Adderall 15 mg Tablet] 20 mg PO BID 01/22/18 [History] Aspirin [Lo-Dose Aspirin EC] 81 mg PO DAILY 09/04/18 [History] Atorvastatin [Lipitor] 40 mg PO HS 09/04/18 [History] Nitroglycerin [Nitrostat] 0.4 mg SL AD PRN 09/04/18 [History] Ticagrelor [Brilinta] 90 mg PO BID #60 tablet 09/04/18 [Rx] Metoprolol Succinate [Toprol Xl] 25 mg PO DAILY #30 tab.er.24h 09/05/18 [Rx] Isosorbide MONOnitrate (24 HR) [Imdur] 30 mg PO DAILY #30 tab.er.24h 11/04/18 [Rx] Allergies/Adverse Reactions: Allergy/AdvReac Type Severity Reaction Status Date / Time hydrocodone [From [place]] AdvReac Itching Verified 01/22/18 08:36 Date of admission: 11/04/18 03:01 Primary care physician: Ketty Rojas MD Consults: 11/04/18 04:30 Consult to Cardiology [CONS] Routine Comment: Consulting Provider: Cardiology Lissette Reason for Consult: 58 y/o M with CAD s/p CABG and LCH x 2 in the past 2 months presenting with unstable angina Call Completed: Yes - Constitutional Vitals: Temp Pulse Resp BP Pulse Ox 97.3 F L 63 17 134/74 97 11/04/18 11:15 11/04/18 11:15 11/04/18 11:15 11/04/18 11:15 11/04/18 11:15 General appearance: Present: cooperative, A&O X 3, answers questions appropriately Exam: Gen: Alert, awake, Oriented to time,place and person Chest: Diminished breath sounds B/L, No wheezing, No crackles, No rales Heart: S1S2+ RRR No murmurs Abd: Soft, NT, BS +, No organomegaly Ext: No edema, pulses are palpable, No calf tenderness Neuro : Benign findings Skin: No rash. - Patient Status Disposition: Home, Self-Care Condition: Good Overall status at discharge: patient is back to baseline - Discharge Instructions Instructions: Chest Pain (DC), Transthoracic Echocardiogram (DC) Follow Up With: Ketty Rojas MD [Primary Care Provider] - 11/12/18 1:40 pm Otto Pickens [Partnered Physician] - 11/07/18 8:50 am - Diet and Activity Activity: increase activity as tolerated Diet: low salt diet
--- NOTE | 2018-11-05 09:13 | Electrocardiograph Report ---
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
== END 2018-11-04 14:39 | disposition home or self-care (01) ==
LOC: 3BNU → SUATTDRO 03:01
PROVIDERS: ADMIT Internal Medicine; ATTEND Family Medicine

== ENCOUNTER 2019-04-03 14:53 | Observation (INO) ==
[2019-04-03] MEDS ORDERED: Ipratropium/Albuterol Neb 3 ML IH ONE (15:01)
[2019-04-03] MEDS ORDERED: predniSONE 20 MG TABLET PO ONE (15:02)
--- NOTE | 2019-04-03 15:05 | Emergency Department Note ---
Disposition Clinical Impression: COPD exacerbation Dyspnea Qualifiers: Dyspnea type: unspecified Qualified Code(s): R06.00 - Dyspnea, unspecified Disposition: Admitted As Inpatient Condition: Fair Time of Disposition: 15:51 SOB HPI - General Stated Complaint: Abnormal EKG Time Seen by Provider: 04/03/19 14:55 Source: patient, EMS Mode of arrival: EMS Limitations: no limitations Nursing Notes Reviewed: Yes Vital Signs Reviewed: Yes - History of Present Illness Patient sent from his primary care provider's office for several days of dyspnea. Dyspnea is both resting and with exertion. No cough, fevers, L contacts. Position makes dyspnea worse. No chest pain. Pt Subjective Complaint: shortness of breath Onset (ago): day(s) Consistency/Duration: constant Worsens with: exertion Associated symptoms: Reports: other (Mild swelling sockline) Treatment prior to arrival: bronchodilator Cough present: No - Related Data Home oxygen amount: none Home Medications Medication Instructions Recorded Confirmed DULoxetine [Cymbalta] 30 mg PO HS 04/27/16 12/19/18 Lisinopril [Zestril] 20 mg PO DAILY 09/19/16 12/19/18 Dextroamphetamine/Amphetamine 20 mg PO BID 01/22/18 12/19/18 [Adderall 15 mg Tablet] Aspirin [Lo-Dose Aspirin EC] 81 mg PO DAILY 09/04/18 12/19/18 Atorvastatin [Lipitor] 40 mg PO DAILY 09/04/18 12/19/18 Nitroglycerin [Nitrostat] 0.4 mg SL AD PRN 09/04/18 12/19/18 ARIPiprazole [Abilify] 10 mg PO HS 12/19/18 12/19/18 Previous Rx's Medication Instructions Recorded Ticagrelor [Brilinta] 90 mg PO BID #60 tablet 09/04/18 Metoprolol Succinate [Toprol Xl] 25 mg PO DAILY #30 tab.er.24h 09/05/18 Isosorbide MONOnitrate (24 HR) 30 mg PO DAILY #30 tab.er.24h 11/04/18 [Imdur] Allergies Allergy/AdvReac Type Severity Reaction Status Date / Time hydrocodone [From [place]] AdvReac Itching Verified 01/22/18 08:36 All systems ED: reviewed and negative except as stated. Constitutional: Reports: as per HPI Eyes: Reports: as per HPI ENT ED: Reports: as per HPI Cardiovascular: Reports: dyspnea on exertion, edema Respiratory: Reports: dyspnea Gastrointestinal: Reports: as per HPI Genitourinary: Reports: as per HPI Musculoskeletal: Reports: as per HPI Integumentary: Reports: as per HPI Neurological: Reports: as per HPI Psychiatric: Reports: as per HPI Endocrine: Reports: as per HPI Hematological/Lymphatic: Reports: as per HPI Allergic/Immunologic: Reports: as per HPI Past Medical History - Past Medical History Source: old records reviewed Medical history: Reports: COPD, coronary artery disease, GERD, hyperlipidemia, hypertension, myocardial infarction, thyroid disease, other Surgical history: Reports: cholecystectomy, coronary bypass (CABG), orthopedic, other, other Psychiatric history: Reports: anxiety, depression, panic disorder - Social History Smoking Status: Former smoker Smokeless Tobacco Status: No Alcohol use: Reports: rarely Drug use: Reports: none Physical Exam Visibly dyspneic. Mildly tachypnea - General Limitations: no limitations General appearance: alert - Head Head exam: atraumatic - Eye Eye exam: Present: normal appearance - ENT ENT exam: normal exam - Neck Neck exam: Present: normal inspection, full ROM - Chest Chest inspection: Present: normal inspection, symmetric chest wall rise - Respiratory Respiratory exam: Present: other (Mild end expiratory rhonchi to right posterior infrascapular region) - Cardiovascular Cardiovascular exam: Present: regular rate, normal rhythm - Abdominal Exam Abdominal exam: Present: soft, Non-Tender - Extremities Exam Extremities exam: Present: pedal edema (Scant swelling at sock line) - Neurological Exam Neurological exam: Present: alert, oriented X3, CN II-XII intact - Psychiatric Psychiatric exam: Present: normal affect, normal mood - Skin Skin exam: Present: warm, dry, intact Course Course Narrative: Patient presents with dyspnea. He was seen by his primary care provider who had concern for dynamic ECG changes. Patient denies chest pain. He does have a history of coronary artery disease with 3 previous coronary stents deployed. He states when he had stents deployed previously he was experiencing chest pain. He is a former heavy smoker. COPD versus pneumonia also a diagnostic consideration. Workup initiated - Reevaluation(s) Reevaluation #1: Will request admission to the medicine service for ongoing therapy Time: 15:50 Vital Signs Temperature 97.5 F L 04/03/19 15:09 Pulse Rate 68 04/03/19 15:09 Respiratory Rate 18 04/03/19 15:09 Blood Pressure 161/103 04/03/19 15:09 O2 Sat by Pulse Oximetry 97 04/03/19 15:09 Temperature 97.5 F L 04/03/19 15:09 Pulse Rate 68 04/03/19 15:09 Respiratory Rate 17 04/03/19 15:28 Blood Pressure 161/103 04/03/19 15:09 O2 Sat by Pulse Oximetry 99 04/03/19 15:28 Oxygen Delivery Oxygen Delivery Nasal Cannula Shortness of Breath/Dyspnea - Medical Records Medical records reviewed: Yes I reviewed the patient's medical records. - Lab Data Lab results reviewed: Yes I reviewed the patient's lab results. Result diagrams: 04/03/19 15:06 04/03/19 15:06 Lab Results 04/03/19 04/03/19 04/03/19 Range/Units 15:06 15:06 15:06 WBC 9.6 (4.3-11.1) K/mcL RBC 5.41 (4.19-5.50) M/mcL Hgb 15.5 (12.9-16.9) g/dL Hct 47.9 (37.5-50.1) % MCV 88.5 (83.0-100.0) fL MCH 28.7 (28.0-33.3) pg MCHC 32.4 (31.6-35.5) g/dL RDW 13.3 (11.5-14.5) % Plt Count 304 (140-400) K/mcL MPV 8.4 L (9.4-12.4) fL Immature Gran % 0.8 (0-4) % Seg Neutrophils % 49.5 % Lymphocytes % 31.6 % Monocytes % 10.9 % Eosinophils % 5.7 % Basophils % 1.5 % Neutrophils # 4.7 (1.6-8.9) K/mcL Lymphocytes # 3.0 (0.6-4.6) K/mcL Monocytes # 1.1 (0.0-1.3) K/mcL Eosinophils # 0.6 (0.0-0.6) K/mcL Basophils # 0.1 (0.0-0.2) K/mcL D-Dimer < 215 (0-500) ng/mLFEU Sodium 144 (136-145) mEq/L Potassium 3.7 (3.5-5.1) mEq/L Chloride 108 H (98-107) mEq/L Carbon Dioxide 25 (23-29) mEq/L BUN 9 (6-20) mg/dL Creatinine 1.00 (0.70-1.30) mg/dL Est GFR ( Amer) > 60 (> 60) Est GFR (Non-Af Amer) > 60 (> 60) BUN/Creatinine Ratio 9 (6-26) Glucose 105 (70-105) mg/dL Calculated Osmolality 297 (280-300) Calcium 9.6 (8.6-10.3) mg/dL Total Bilirubin 0.4 (0.3-1.0) mg/dL AST 16 (13-39) Units/L ALT 20 (7-52) Units/L Alkaline Phosphatase 77 (34-104) Units/L Troponin I < 0.03 (< 0.04) ng/mL B-Natriuretic Peptide (Less than 100) pg/mL Serum Total Protein 6.3 L (6.4-8.9) g/dL Albumin 3.8 (3.5-5.7) g/dL Globulin 2.5 (2.4-3.5) g/dL Albumin/Globulin Ratio 1.5 (1.1-2.2) 04/03/19 Range/Units 15:06 WBC (4.3-11.1) K/mcL RBC (4.19-5.50) M/mcL Hgb (12.9-16.9) g/dL Hct (37.5-50.1) % MCV (83.0-100.0) fL MCH (28.0-33.3) pg MCHC (31.6-35.5) g/dL RDW (11.5-14.5) % Plt Count (140-400) K/mcL MPV (9.4-12.4) fL Immature Gran % (0-4) % Seg Neutrophils % % Lymphocytes % % Monocytes % % Eosinophils % % Basophils % % Neutrophils # (1.6-8.9) K/mcL Lymphocytes # (0.6-4.6) K/mcL Monocytes # (0.0-1.3) K/mcL Eosinophils # (0.0-0.6) K/mcL Basophils # (0.0-0.2) K/mcL D-Dimer (0-500) ng/mLFEU Sodium (136-145) mEq/L Potassium (3.5-5.1) mEq/L Chloride (98-107) mEq/L Carbon Dioxide (23-29) mEq/L BUN (6-20) mg/dL Creatinine (0.70-1.30) mg/dL Est GFR ( Amer) (> 60) Est GFR (Non-Af Amer) (> 60) BUN/Creatinine Ratio (6-26) Glucose (70-105) mg/dL Calculated Osmolality (280-300) Calcium (8.6-10.3) mg/dL Total Bilirubin (0.3-1.0) mg/dL AST (13-39) Units/L ALT (7-52) Units/L Alkaline Phosphatase (34-104) Units/L Troponin I (< 0.04) ng/mL B-Natriuretic Peptide 61 (Less than 100) pg/mL Serum Total Protein (6.4-8.9) g/dL Albumin (3.5-5.7) g/dL Globulin (2.4-3.5) g/dL Albumin/Globulin Ratio (1.1-2.2) - Radiology Data Radiology results reviewed: Yes I reviewed the patient's radiology results. - EKG Data EKG attestation: Yes I reviewed and interpreted this EKG. EKG results narrative: Normal sinus rhythm rate 66 P-R 147 QRS 126 QT/QTc 445/467. Diffuse inverted T waves especially in inferior and lateral leads. Criteria for left ventricular hypertrophy. No acute ST segment elevation. Study compared to previous dated 11/04/18
[2019-04-03 15:25] LABS: Basophils # 0.1 K/mcL (0.0-0.2); Basophils % 1.5 %; Eosinophils # 0.6 K/mcL (0.0-0.6); Eosinophils % 5.7 %; Hematocrit 47.9 % (37.5-50.1); Hemoglobin 15.5 g/dL (12.9-16.9); Immature Granulocytes % 0.8 % (0-4); Lymphocytes % 31.6 %; Mean Corpuscular HGB Conc 32.4 g/dL (31.6-35.5); Mean Corpuscular Hemoglobin 28.7 pg (28.0-33.3); Mean Corpuscular Volume 88.5 fL (83.0-100.0); Mean Platelet Volume 8.4 fL (9.4-12.4); Monocytes # 1.1 K/mcL (0.0-1.3); Monocytes % 10.9 %; Neutrophils # 4.7 K/mcL (1.6-8.9); Platelet Count 304 K/mcL (140-400); Red Blood Count 5.41 M/mcL (4.19-5.50); Red Cell Distribution Width 13.3 % (11.5-14.5); Segmented Neutrophils % 49.5 %; White Blood Count 9.6 K/mcL (4.3-11.1)
[2019-04-03 15:46] LABS: Alanine Aminotransferase 20 Units/L (7-52); Albumin 3.8 g/dL (3.5-5.7); Albumin/Globulin Ratio 1.5 (1.1-2.2); Alkaline Phosphatase 77 Units/L (34-104); Aspartate Amino Transferase 16 Units/L (13-39); BUN/Creatinine Ratio 9 (6-26); Bilirubin,Total 0.4 mg/dL (0.3-1.0); Blood Urea Nitrogen 9 mg/dL (6-20); Calcium 9.6 mg/dL (8.6-10.3); Carbon Dioxide 25 mEq/L (23-29); Chloride 108 mEq/L (98-107); Globulin 2.5 g/dL (2.4-3.5); Glucose 105 mg/dL (70-105); Osmolality,Calculated 297 (280-300); Potassium 3.7 mEq/L (3.5-5.1); Sodium 144 mEq/L (136-145); Total Protein 6.3 g/dL (6.4-8.9); Troponin I < 0.03 ng/mL (< 0.04); eGFR For African Americans > 60 (> 60); eGFR For Non-African Americans > 60 (> 60)
--- NOTE | 2019-04-03 16:41 | Internal Med History&Physical ---
Date of Encounter: 04/03/19 Time of Encounter: 17:10 Internal Medicine - H&P: HPI History of present illness: Mr. Kowalski is a 58 year old male with history of HFrEF last EF 45-50%, COPD, CAD with history of CABG, presented to ED from primary care providers office for SOB. Onset of symptoms was 3 days ago. Associated with positional changes, did have a few brief episodes of orthopnea, and also noted a little bit of swelling in lower extremities but still able to put his socks and shoes on without any issuesHe states he had no chest pain, n/v, diarrhea/constipation, numbness/tingling, palpitations, fevers, cough, sputum. Past Med Surg Social Fam HX - Past Medical History Medical history: COPD, coronary artery disease, GERD, hyperlipidemia, hypertension, myocardial infarction, thyroid disease, other Additional medical history: sleep apnea, DLD, ulcertive colitis, hiatal hernia, taylor's esophagus, crohns disease, dyslipemia, MIx2 Psychiatric history: anxiety, depression, panic disorder - Past Surgical History Surgical History: cholecystectomy, coronary bypass (CABG), orthopedic, other, other Additional surgical history: colonoscopy, egd, cardiac cath w/ 2 stents in August 2018, CABG 2005, KNEE SURGERY, RIGHT SHOULDER SURGERY - Social History Smoking Status: Former smoker Smokeless Tobacco Status: No Alcohol use: rarely Drug use: none Internal Medicine - H&P: Meds ARIPiprazole [Abilify] 10 mg PO DAILY 04/03/19 [History] Atorvastatin [Lipitor] 40 mg PO HS 04/03/19 [History] BuPROPion XL (24 HR) [Wellbutrin XL] 150 mg PO DAILY 04/03/19 [History] DULoxetine [Cymbalta] 30 mg PO DAILY 04/03/19 [History] Dextroamphetamine/Amphetamine [Adderall 20 mg Tablet] 20 mg PO BID 04/03/19 [History] Isosorbide MONOnitrate [Isosorbide Mononitrate ER] 30 mg PO DAILY 04/03/19 [History] Lisinopril [Zestril] 20 mg PO DAILY 04/03/19 [History] Metoprolol Succinate [Toprol Xl] 50 mg PO DAILY 04/03/19 [History] Nitroglycerin [Nitrostat] 0.4 mg SL PRN PRN 04/03/19 [History] Omeprazole [PriLOSEC] 20 mg PO DAILY 04/03/19 [History] Terazosin [Hytrin] 5 mg PO HS 04/03/19 [History] Ticagrelor [Brilinta] 60 mg PO BID 04/03/19 [History] Allergy/AdvReac Type Severity Reaction Status Date / Time hydrocodone [From [place]] AdvReac Itching Verified 01/22/18 08:36 All Systems PM: A 10-system review of systems was performed and is negative for pertinent findings except as documented above in the HPI. - Constitutional Vitals: Temp Pulse Resp BP Pulse Ox 97.5 F L 84 18 171/101 98 04/03/19 15:09 04/03/19 16:05 04/03/19 16:05 04/03/19 16:05 04/03/19 16:05 General appearance: Present: A&O X 3, no acute distress Exam: . - Head Head exam: Present: atraumatic, normocephalic - Eye Eye exam: Present: PERRL, conjuntiva pink, sclera anicteric Pupils: Present: PERRL - Neck Neck exam general surgery: Present: supple, trachea midline. Absent: lymphadenopathy - Respiratory Respiratory exam: Present: decreased breath sounds. Absent: accessory muscle use, rhonchi, wheezes Additional comments: Fine rales bilaterally. No acute respiratory distress but has decreased breath sounds. - Cardiovascular Cardiovascular exam: Present: RRR, +S1, +S2. Absent: diastolic murmur, gallop, rubs, systolic murmur - GI/Abdominal GI/Abdominal exam: Present: normal bowel sounds, soft, no peritoneal signs. Absent: distended, tenderness - Extremities Exam Extremities exam: Present: pedal edema (Trace bilaterally above socks.), warm, radial pulses palpable and symmetrical. Absent: calf tenderness, cyanotic - Neurological Exam Neurological exam: Present: CN II-XII intact, oriented X3, no focal deficits. Absent: pronater drift, facial droop, speech deficit - Skin Skin exam: Present: dry, intact Internal Med - H&P Results - Labs CBC & Chem 7: 04/03/19 15:06 04/03/19 15:06 Labs: Short CBC 04/03/19 Range/Units 15:06 WBC 9.6 (4.3-11.1) K/mcL Hgb 15.5 (12.9-16.9) g/dL Hct 47.9 (37.5-50.1) % Plt Count 304 (140-400) K/mcL Neutrophils # 4.7 (1.6-8.9) K/mcL BMP 04/03/19 15:06 Sodium 144 Potassium 3.7 Chloride 108 H Carbon Dioxide 25 BUN 9 Creatinine 1.00 Glucose 105 Calcium 9.6 Cardiac Enzymes 04/03/19 Range/Units 15:06 Troponin I < 0.03 (< 0.04) ng/mL Liver Function 04/03/19 Range/Units 15:06 Total Bilirubin 0.4 (0.3-1.0) mg/dL AST 16 (13-39) Units/L ALT 20 (7-52) Units/L Alkaline Phosphatase 77 (34-104) Units/L Albumin 3.8 (3.5-5.7) g/dL - Impressions ITS Impressions Chest X-Ray 04/03/19 15:01 IMPRESSION: Cardiomegaly with low lung volumes and mild vascular congestive changes. D/ / 04/03/2019 15:33:16 Walter Negron MD / jaida Interpreting Provider: Walter Negron MD - Assessment and Plan (1) Dyspnea Current Visit: Yes Status: Acute Assessment and plan: Mostly COPD exacerbation triggered by smoking. Possibly a mild fluid overload component given complaints of orthopnea, mild lower extremity edema, and some fine rales on exam. Chest x-ray without any acute process, BNP was normal suggestive against overt heart failure, D-dimer negative which makes PE unlikely. Trigger is most likely from continuing smoking. Does not appear to be infectious cause. He does not complain of chest pain but he was concerned this is similar symptoms he had in the past. EKG in ED showed NSR at 66 bpm, with - Continue Duo Nebs scheduled - Prednisone burst x 5 days - Start gentle diuresis with 20 mg Lasix BID and monitor - Repeat BMP in AM Qualifiers: Dyspnea type: unspecified Qualified Code(s): R06.00 - Dyspnea, unspecified (2) Heart failure with reduced ejection fraction Current Visit: Yes Status: Acute Assessment and plan: Plan as above. Resume home medications. Qualifiers: Heart failure chronicity: acute on chronic Qualified Code(s): I50.23 - Acute on chronic systolic (congestive) heart failure (3) Peptic ulcer disease Current Visit: Yes Status: Acute Assessment and plan: Omeprazole (4) Tobacco abuse Current Visit: Yes Status: Acute Assessment and plan: Nicotine patch prn. (5) COPD exacerbation Current Visit: Yes Status: Acute (6) CAD (coronary artery disease) Current Visit: No Status: Acute Qualifiers: Coronary Disease-Associated Artery/Lesion type: [place] artery [place] vs. transplanted heart: [place] heart Associated angina: without angina Qualified Code(s): I25.10 - Atherosclerotic heart disease of [place] coronary artery witho ut angina pectoris (7) HTN (hypertension) Current Visit: No Status: Acute Qualifiers: Hypertension type: essential hypertension Qualified Code(s): I10 - Essential (primary) hypertension (8) DVT prophylaxis Current Visit: Yes Status: Acute - Time Spent With Patient Total time spent is greater than 50% in coordination of care (as documented) at patient's floor/unit and/or counseling patient:
[2019-04-03] MEDS ORDERED: Nitroglycerin 0.4 MG TAB.SUBL SL PRN (16:48)
[2019-04-03] MEDS ORDERED: Naloxone 0.4 MG/ML INJ IVP PRN (16:52)
[2019-04-03 17:13] VITALS: BP 153/99
[2019-04-03] MEDS ORDERED: Nicotine 14 MG PATCH.TD24 TD PRN (17:32)
[2019-04-03] MEDS ORDERED: Furosemide 40 MG TABLET PO ONE (17:41)
[2019-04-03] MEDS ORDERED: *HR* Heparin 5,000 UNIT/ML VIAL SQ SCH (18:00)
[2019-04-03] MEDS ORDERED: TICAGRELOR 60 MG PO SCH (21:00)
[2019-04-03] MEDS ORDERED: (Dextroamphetamine/Amphetamine [Adderall 20 Mg Tablet) PO SCH (21:00)
[2019-04-03] MEDS ORDERED: Ipratropium/Albuterol Neb 3 ML IH SCH (22:00)
[2019-04-04] MEDS ORDERED: Isosorbide MONOnitrate (24 HR) 30 MG TAB.ER.24H PO SCH (09:00)
[2019-04-04] MEDS ORDERED: BuPROPion XL (24 HR) 150 MG TABLET PO SCH (09:00)
[2019-04-04] MEDS ORDERED: Metoprolol XL (24 HR) Succ 50 MG TAB.ER.24H PO SCH (09:00)
[2019-04-04] MEDS ORDERED: predniSONE 20 MG TABLET PO SCH (09:00)
[2019-04-04] MEDS ORDERED: Lisinopril 20 MG TABLET PO SCH (09:00)
[2019-04-04] MEDS ORDERED: ARIPiprazole 10 MG TABLET PO SCH (09:00)
--- NOTE | 2019-04-05 00:39 | Electrocardiograph Report ---
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
== END 2019-04-03 18:24 | disposition home or self-care (01) ==
LOC: 3BNU 14:53 → EMEROOARM 14:53 → 3BNU 17:08
PROVIDERS: ADMIT Student in an Organized Health Care Education/Training Program; ATTEND Student in an Organized Health Care Education/Training Program

== ENCOUNTER 2020-03-11 13:32 | Inpatient (IN) ==
[2020-03-11] MEDS ORDERED: Isovue-370 500 ML BOTTLE IVP ONE (13:38)
[2020-03-11 13:52] LABS: Hematocrit 50.2 % (37.5-50.1); Mean Corpuscular HGB Conc 33.9 g/dL (31.6-35.5); Mean Corpuscular Volume 88.7 fL (83.0-100.0); Mean Platelet Volume 8.5 fL (9.4-12.4); Platelet Count 320 K/mcL (140-400); Red Blood Count 5.66 M/mcL (4.19-5.50); Red Cell Distribution Width 13.2 % (11.5-14.5); White Blood Count 9.3 K/mcL (4.3-11.1)
[2020-03-11] MEDS ORDERED: Ondansetron 4 MG/2 ML VIAL IVP STA (13:52)
[2020-03-11] MEDS ORDERED: Ondansetron 4 MG/2 ML VIAL ONE (13:52)
[2020-03-11 14:01] LABS: INR 1.1; Prothrombin Time 12.2 Seconds (9.4-12.1)
[2020-03-11 14:04] LABS: Activated Partial Thrombo Time 36.7 Seconds (26.0-36.0)
[2020-03-11 14:24] LABS: BUN/Creatinine Ratio 11 (6-26); Blood Urea Nitrogen 10 mg/dL (6-20); Calcium 10.5 mg/dL (8.6-10.3); Carbon Dioxide 25 mEq/L (23-29); Chloride 109 mEq/L (98-107); Glucose 103 mg/dL (70-105); Osmolality,Calculated 293 (280-300); Potassium 3.4 mEq/L (3.5-5.1); Sodium 142 mEq/L (136-145); Troponin I < 0.03 ng/mL (< 0.04); eGFR For African Americans > 60 (> 60); eGFR For Non-African Americans > 60 (> 60)
[2020-03-11] MEDS ORDERED: Aspirin 325 MG TABLET PO ONE (14:35)
[2020-03-11] MEDS ORDERED: Mag Hydrox/Al Hydrox/Simeth 30 ML UDC PO PRN (14:52)
[2020-03-11] MEDS ORDERED: Ondansetron 4 MG/2 ML VIAL IVP PRN (14:52)
[2020-03-11] MEDS ORDERED: Naloxone 0.4 MG/ML INJ IVP PRN (14:52)
[2020-03-11] MEDS ORDERED: MOM Conc 10 ML UD.LIQ PO PRN (14:52)
[2020-03-11] MEDS ORDERED: Nitroglycerin 0.4 MG TAB.SUBL SL PRN (14:57)
[2020-03-11] MEDS ORDERED: *HR* Metoprolol 5 MG/5 ML VIAL IVP ONE (16:20)
[2020-03-11 19:30] LABS: Amphetamine Screen,Urine Positive ng/mL (Cutoff=1000); Barbiturate Screen,Urine Negative ng/mL (Cutoff=200); Benzodiazepines Screen,Urine Negative ng/mL (Cutoff=200); Cannabinoid Screen,Urine Negative ng/mL (Cutoff = 50); Cocaine Screen,Urine Negative ng/mL (Cutoff= 300); Opiate Screen,Urine Negative ng/mL (Cutoff=300); Phencyclidine Screen,Urine Negative ng/mL (Cutoff=25)
[2020-03-11] MEDS ORDERED: Perflutren Lipid Microsphere 1.3 ML in 0.9 % Sodium Chloride 8.7 ML IVP ONE (20:36)
[2020-03-11] MEDS: traZODone 50 MG TABLET PO SCH (22:04)
[2020-03-11] MEDS: Acetaminophen 325 MG TABLET PO PRN (22:04)
[2020-03-11] MEDS: *HR* Ticagrelor 90 MG TABLET PO SCH (22:04)
[2020-03-12] MEDS: Metoprolol XL (24 HR) Succ 50 MG TAB.ER.24H PO SCH (09:16)
[2020-03-12] MEDS: lisinopriL 20 MG TABLET PO SCH (09:16)
[2020-03-12] MEDS: *HR* Ticagrelor 90 MG TABLET PO SCH ×2 (09:16→20:18)
[2020-03-12] MEDS: Aspirin Enteric Coated 81 MG Tablet PO SCH (09:16)
[2020-03-12 10:56] LABS: Hematocrit 52.1 % (37.5-50.1); Hemoglobin 16.8 g/dL (12.9-16.9); Mean Corpuscular HGB Conc 32.2 g/dL (31.6-35.5); Mean Corpuscular Hemoglobin 29.1 pg (28.0-33.3); Mean Corpuscular Volume 90.1 fL (83.0-100.0); Mean Platelet Volume 8.8 fL (9.4-12.4); Platelet Count 310 K/mcL (140-400); Red Blood Count 5.78 M/mcL (4.19-5.50); Red Cell Distribution Width 13.3 % (11.5-14.5); White Blood Count 7.8 K/mcL (4.3-11.1)
[2020-03-12 11:10] LABS: Estimated Average Glucose 126 mg/dl
[2020-03-12 11:17] LABS: INR 1.1; Prothrombin Time 12.3 Seconds (9.4-12.1)
[2020-03-12 11:20] LABS: BUN/Creatinine Ratio 12 (6-26); Blood Urea Nitrogen 13 mg/dL (6-20); Calcium 10.9 mg/dL (8.6-10.3); Carbon Dioxide 24 mEq/L (23-29); Chloride 105 mEq/L (98-107); Chol/HDL Ratio 4.7 (0-4.9); Cholesterol 182 mg/dL (< 200); Glucose 101 mg/dL (70-105); HDL Cholesterol 39 mg/dL (40-59); LDL Cholesterol,Calculated 124 mg/dL (< 100); Magnesium 2.1 mg/dL (1.6-2.6); Osmolality,Calculated 286 (280-300); Potassium 3.5 mEq/L (3.5-5.1); Sodium 138 mEq/L (136-145); Triglycerides 95 mg/dL (< 150); Troponin I < 0.03 ng/mL (< 0.04); eGFR For African Americans > 60 (> 60); eGFR For Non-African Americans > 60 (> 60)
[2020-03-12] MEDS: Acetaminophen 325 MG TABLET PO PRN (20:19)
[2020-03-12] MEDS: traZODone 50 MG TABLET PO SCH (20:19)
[2020-03-13 04:44] LABS: BUN/Creatinine Ratio 16 (6-26); Blood Urea Nitrogen 15 mg/dL (6-20); Calcium 9.8 mg/dL (8.6-10.3); Carbon Dioxide 25 mEq/L (23-29); Chloride 110 mEq/L (98-107); Glucose 101 mg/dL (70-105); Osmolality,Calculated 293 (280-300); Potassium 3.6 mEq/L (3.5-5.1); Sodium 141 mEq/L (136-145); eGFR For African Americans > 60 (> 60); eGFR For Non-African Americans > 60 (> 60)
[2020-03-13] MEDS: *HR* Ticagrelor 90 MG TABLET PO SCH (08:36)
[2020-03-13] MEDS: lisinopriL 20 MG TABLET PO SCH (08:36)
[2020-03-13] MEDS: Aspirin Enteric Coated 81 MG Tablet PO SCH (08:36)
[2020-03-13] MEDS: Metoprolol XL (24 HR) Succ 50 MG TAB.ER.24H PO SCH (08:36)
[2020-03-13] MEDS: traZODone 50 MG TABLET PO SCH (20:48)
[2020-03-14] MEDS: Metoprolol XL (24 HR) Succ 50 MG TAB.ER.24H PO SCH (07:58)
[2020-03-14] MEDS: lisinopriL 20 MG TABLET PO SCH (08:54)
[2020-03-14] MEDS: Aspirin Enteric Coated 81 MG Tablet PO SCH (08:54)
[2020-03-14] MEDS ORDERED: *HR* FentaNYL (PF) 100 MCG/2 ML VIAL IVP PRN (12:57)
[2020-03-14] MEDS ORDERED: Lidocaine Viscous Oral Soln 15 ML SOLUTION MM PRN (12:57)
[2020-03-14] MEDS ORDERED: 0.9 % Sodium Chloride 500 ML IVC ONE (12:58)
[2020-03-14] MEDS ORDERED: *HR* Midazolam HCl 5 MG/5 ML VIAL IVP PRN (12:58)
[2020-03-14 13:25] VITALS: BP 129/92
== END 2020-03-14 15:44 | disposition home health service (06) | DRG 65 ==
LOC: 3BNU 13:32 → EMEROOARM 13:32 → SUATTDRO 17:11 → 3BNU 18:09 → SUATTDRO 03-12 19:29
PROVIDERS: ADMIT Internal Medicine; ATTEND Internal Medicine

== ENCOUNTER 2020-08-22 13:28 | Observation (INO) ==
[2020-08-22] MEDS ORDERED: 0.9 % Sodium Chloride 1,000 ML IVC ONE (13:37)
[2020-08-22] MEDS ORDERED: Isovue-370 500 ML BOTTLE IVP ONE (13:37)
[2020-08-22 13:48] LABS: Hemoglobin 17.6 g/dL (12.9-16.9); Mean Corpuscular HGB Conc 31.9 g/dL (31.6-35.5); Mean Corpuscular Hemoglobin 28.7 pg (28.0-33.3); Mean Corpuscular Volume 89.7 fL (83.0-100.0); Mean Platelet Volume 8.3 fL (9.4-12.4); Platelet Count 289 K/mcL (140-400); Red Blood Count 6.14 M/mcL (4.19-5.50); Red Cell Distribution Width 13.4 % (11.5-14.5); White Blood Count 10.7 K/mcL (4.3-11.1)
[2020-08-22 14:00] LABS: Hematocrit 55.1 % (37.5-50.1)
[2020-08-22 14:06] LABS: BUN/Creatinine Ratio 14 (6-26); Blood Urea Nitrogen 14 mg/dL (8-23); Calcium 10.7 mg/dL (8.6-10.3); Carbon Dioxide 27 mEq/L (23-29); Chloride 108 mEq/L (98-107); Ethanol < 10 mg/dL (Less than 10); Glucose 113 mg/dL (70-105); Osmolality,Calculated 291 (280-300); Potassium 3.4 mEq/L (3.5-5.1); Sodium 140 mEq/L (136-145); eGFR For African Americans > 60 (> 60); eGFR For Non-African Americans > 60 (> 60)
[2020-08-22 14:08] LABS: Troponin I < 0.03 ng/mL (< 0.04)
[2020-08-22 14:32] LABS: INR 1.1; Prothrombin Time 12.9 Seconds (9.4-12.1)
[2020-08-22 14:34] LABS: Activated Partial Thrombo Time 30.2 Seconds (26.0-36.0)
[2020-08-22] MEDS ORDERED: Naloxone 0.4 MG/ML INJ IVP PRN (16:39)
[2020-08-22 16:43] LABS: Bilirubin,Urine Negative (Negative); Blood,Urine Negative (Negative); Clarity,Urine Clear (Clear); Color,Urine Light-Yellow (Yellow); Glucose,Urine (UA) Normal (Normal); Ketones,Urine Negative (Negative); Leukocyte Esterase,Urine Negative (Negative); Nitrite,Urine Negative (Negative); PH,Urine 6.5 pH Units (5.0-8.0); Protein,Urine Trace mg/dL (Neg-Trace); Specific Gravity,Urine > 1.030 (1.010-1.025); Urobilinogen,Urine Normal (Normal)
[2020-08-22] MEDS: Aspirin 81 MG TAB.CHEW PO SCH (17:46)
[2020-08-22 18:44] LABS: Amphetamine Screen,Urine Negative ng/mL (Cutoff=1000); Barbiturate Screen,Urine Negative ng/mL (Cutoff=200); Benzodiazepines Screen,Urine Negative ng/mL (Cutoff=200); Cannabinoid Screen,Urine Negative ng/mL (Cutoff = 50); Cocaine Screen,Urine Negative ng/mL (Cutoff= 300); Opiate Screen,Urine Negative ng/mL (Cutoff=300); Phencyclidine Screen,Urine Negative ng/mL (Cutoff=25)
[2020-08-22] MEDS ORDERED: *HR* LORazepam 2 MG/ML VIAL IVP ONE (19:40)
[2020-08-22] MEDS: lisinopriL 5 MG TABLET PO SCH (20:28)
[2020-08-23 06:30] LABS: Basophils # 0.1 K/mcL (0.0-0.2); Basophils % 0.9 %; Eosinophils # 0.5 K/mcL (0.0-0.6); Eosinophils % 5.3 %; Hematocrit 50.4 % (37.5-50.1); Hemoglobin 16.7 g/dL (12.9-16.9); Immature Granulocytes % 0.6 % (0-4); Lymphocytes # 3.8 K/mcL (0.6-4.6); Lymphocytes % 37.9 %; Mean Corpuscular HGB Conc 33.1 g/dL (31.6-35.5); Mean Corpuscular Hemoglobin 29.5 pg (28.0-33.3); Mean Corpuscular Volume 88.9 fL (83.0-100.0); Mean Platelet Volume 8.6 fL (9.4-12.4); Monocytes # 1.1 K/mcL (0.0-1.3); Monocytes % 10.6 %; Neutrophils # 4.5 K/mcL (1.6-8.9); Platelet Count 271 K/mcL (140-400); Red Blood Count 5.67 M/mcL (4.19-5.50); Red Cell Distribution Width 13.2 % (11.5-14.5); Segmented Neutrophils % 44.7 %; White Blood Count 10.1 K/mcL (4.3-11.1)
[2020-08-23 06:34] LABS: BUN/Creatinine Ratio 17 (6-26); Blood Urea Nitrogen 14 mg/dL (8-23); Calcium 10.1 mg/dL (8.6-10.3); Carbon Dioxide 24 mEq/L (23-29); Chloride 110 mEq/L (98-107); Chol/HDL Ratio 5.7 (0-4.9); Cholesterol 189 mg/dL (< 200); Glucose 100 mg/dL (70-105); HDL Cholesterol 33 mg/dL (40-59); LDL Cholesterol,Calculated 116 mg/dL (< 100); Osmolality,Calculated 291 (280-300); Potassium 3.8 mEq/L (3.5-5.1); Sodium 140 mEq/L (136-145); Triglycerides 202 mg/dL (< 150); eGFR For African Americans > 60 (> 60); eGFR For Non-African Americans > 60 (> 60)
[2020-08-23 06:58] LABS: Estimated Average Glucose 117 mg/dl
[2020-08-23] MEDS: lisinopriL 5 MG TABLET PO SCH (08:03)
[2020-08-23] MEDS: Aspirin 81 MG TAB.CHEW PO SCH (08:04)
[2020-08-23] MEDS ORDERED: lisinopriL 10 MG TABLET PO SCH (13:45)
[2020-08-23 14:55] VITALS: BP 168/90
[2020-08-23] MEDS ORDERED: Metoprolol XL (24 HR) Succ 25 MG TAB.ER.24H PO SCH (15:45)
== END 2020-08-23 15:57 | disposition home health service (06) ==
LOC: EMEROOARM 13:28 → 3BNU 13:28
PROVIDERS: ADMIT Internal Medicine; ATTEND Internal Medicine

== ENCOUNTER 2021-03-15 22:28 | Observation (INO) ==
[2021-03-15] MEDS ORDERED: Isovue-370 500 ML BOTTLE IVP ONE (22:34)
[2021-03-15 23:09] LABS: Basophils # 0.2 K/mcL (0.0-0.2); Basophils % 1.5 %; Eosinophils # 0.6 K/mcL (0.0-0.6); Eosinophils % 5.5 %; Hemoglobin 16.2 g/dL (12.9-16.9); Immature Granulocytes % 0.8 % (0-4); Lymphocytes # 3.2 K/mcL (0.6-4.6); Mean Corpuscular HGB Conc 33.1 g/dL (31.6-35.5); Mean Corpuscular Volume 87.7 fL (83.0-100.0); Mean Platelet Volume 8.8 fL (9.4-12.4); Monocytes # 1.2 K/mcL (0.0-1.3); Monocytes % 10.8 %; Neutrophils # 5.5 K/mcL (1.6-8.9); Platelet Count 317 K/mcL (140-400); Red Blood Count 5.59 M/mcL (4.19-5.50); Red Cell Distribution Width 13.5 % (11.5-14.5); Segmented Neutrophils % 51.4 %; White Blood Count 10.6 K/mcL (4.3-11.1)
[2021-03-15 23:16] LABS: INR 1.1; Prothrombin Time 12.3 Seconds (9.4-12.1)
[2021-03-15 23:19] LABS: Activated Partial Thrombo Time 32.5 Seconds (26.0-36.0)
[2021-03-15 23:31] LABS: BUN/Creatinine Ratio 15 (6-26); Blood Urea Nitrogen 13 mg/dL (8-23); Calcium 10.4 mg/dL (8.6-10.3); Carbon Dioxide 25 mEq/L (23-29); Chloride 106 mEq/L (98-107); Glucose 93 mg/dL (70-105); Osmolality,Calculated 294 (280-300); Potassium 3.3 mEq/L (3.5-5.1); Sodium 142 mEq/L (136-145); Troponin I < 0.03 ng/mL (< 0.04); eGFR For African Americans > 60 (> 60); eGFR For Non-African Americans > 60 (> 60)
[2021-03-16 00:15] LABS: Bilirubin,Urine Negative (Negative); Blood,Urine Negative (Negative); Clarity,Urine Clear (Clear); Color,Urine Colorless (Yellow); Glucose,Urine (UA) Normal (Normal); Ketones,Urine Negative (Negative); Leukocyte Esterase,Urine Negative (Negative); Nitrite,Urine Negative (Negative); PH,Urine 6.5 pH Units (5.0-8.0); Protein,Urine Negative (Neg-Trace); Specific Gravity,Urine > 1.030 (1.010-1.025); Urobilinogen,Urine Normal (Normal)
[2021-03-16 00:23] LABS: Amphetamine Screen,Urine Negative ng/mL (Cutoff=1000); Barbiturate Screen,Urine Negative ng/mL (Cutoff=200); Benzodiazepines Screen,Urine Negative ng/mL (Cutoff=200); Cannabinoid Screen,Urine Negative ng/mL (Cutoff = 50); Cocaine Screen,Urine Negative ng/mL (Cutoff= 300); Opiate Screen,Urine Negative ng/mL (Cutoff=300); Phencyclidine Screen,Urine Negative ng/mL (Cutoff=25)
[2021-03-16] MEDS ORDERED: Perflutren Lipid Microsphere 1.3 ML in 0.9 % Sodium Chloride 8.7 ML IVP PRN (04:30)
[2021-03-16] MEDS ORDERED: Aspirin 325 MG TABLET PO ONE (07:25)
[2021-03-16] MEDS ORDERED: *HR* Labetalol 20 MG/4 ML SYRINGE IVP STA (08:25)
[2021-03-16 08:55] VITALS: BP 142/84
[2021-03-17] MEDS ORDERED: Aspirin 81 MG TAB.CHEW PO SCH (09:00)
== END 2021-03-16 15:57 | disposition home or self-care (01) ==
LOC: EMEROOARM 22:28 → CDU 22:28 → 3BNU 03-16 14:07
PROVIDERS: ADMIT Student in an Organized Health Care Education/Training Program; ATTEND Student in an Organized Health Care Education/Training Program